=== PATIENT | female | born 1985 | race Caucasian/White ===

== ENCOUNTER 2016-03-19 11:45 | Outpatient (CLI) | payer BC ==
[~2016-03-19 11:45] MED LIST: PRENTAB26 PO
--- NOTE | 2016-03-19 15:24 | Progress Note ---
Progress Note 30 F [id number] 39.3 with fall earlier in the day down some steps with small pea size clot she passed. She fell on her butt and did not hit her abdomen. FHT Cat 1 with irregular contractions. Abdomen is soft and non-tender. No active bleeding at this time. Cervix is long and closed. patient wants TOLAC and is scheduled for repeat next week if she does not go in labor. Follow up instructions given to call if any bleeding or contractions that are regular.
[2016-05-27] MEDS ORDERED: OXYC-57 PO (13:05)
== END 2016-03-19 15:29 | disposition home or self-care (01) ==
LOC: C.OPB 11:45 → C.LD 11:46 → C.OPB 15:29
PROVIDERS: ATTEND Obstetrics & Gynecology
DX: O62.9 Abnormality of forces of labor, unspecified (principal); O46.93 Antepartum hemorrhage, unspecified, third trimester; W19.XXXA Unspecified fall, initial encounter; Z3A.39 39 weeks gestation of pregnancy

== ENCOUNTER 2016-03-21 18:35 | Outpatient (CLI) | payer BC ==
[2016-03-08 13:29] LABS: BASO % 0.2 %; BASO ABS # 0.02 K/uL (0-0.2); COMPLETE YES; EOS % 0.3 %; HEMATOCRIT 34.6 % (37-47); IG% 1.1 %; LYMPH % 18.3 %; LYMPH ABS # 2.26 K/uL (1.2-3.4); MEAN CELL VOLUME 87.8 fL (80-100); MEAN CORPUSCULAR HEMOGLOBIN 30.2 pg (25-34); MEAN CORPUSCULAR HGB CONC 34.4 g/dl (32-36); MEAN PLATELET VOLUME 10.2 fL (7.4-10.4); MONO % 4.4 %; NEUT % 75.7 %; PLATELET COUNT 199 K/uL (130-400); RED BLOOD COUNT 3.94 M/uL (4.2-5.4); WHITE BLOOD COUNT 12.34 K/uL (4.8-10.8)
--- NOTE | 2016-03-08 13:46 | PAT Medication Instructions ---
Service Date Mar 08, 2016. Current Home Medication List Multivit/Min/Iron/Fol Ac/Pren ( Vitamin), 1 TAB PO QAM Medication Instructions For Your Scheduled Surgery - Hold the following medications the morning of surgery: Multivit/Min/Iron/Fol Ac/Pren ( Vitamin), 1 TAB PO QAM If you have any questions please call us at [phone] or [phone] ( Adrienne) or [phone]
[~2016-03-21] VITALS: Ht 165.1 cm; Wt 100.9 kg
[2016-03-21 19:44] VITALS: Ht 165.1 cm; Wt 100.9 kg
[2016-03-25] MEDS ORDERED: LACTATED RINGER'S 1000ML 1,000 ML IV SCH (06:00)
[2016-03-25] MEDS ORDERED: CEFAZOLIN IV 2,000 MG in DEXTROSE 5% 50ML IV SCH (06:00)
[2016-05-27] MEDS ORDERED: OXYC-57 PO (13:05)
== END 2016-03-21 19:45 | disposition home or self-care (01) ==
LOC: C.LD 18:35 → C.OPB 18:35 → EDSTATUS 03-25 12:40
PROVIDERS: ATTEND Obstetrics & Gynecology
DX: O62.9 Abnormality of forces of labor, unspecified (principal); Z3A.39 39 weeks gestation of pregnancy

== ENCOUNTER 2016-03-25 05:46 | Inpatient (IN) | payer BC ==
--- NOTE | 2016-03-24 17:10 | HISTORY & PHYSICAL EXAMINATION ---
DATE OF ADMISSION: 03/25/2016 CHIEF COMPLAINT: , repeat. HISTORY OF PRESENT ILLNESS: The patient is a 30-year-old female para 1-0-0-1 at 40 weeks and 2 days, admitted for an elective repeat section. The patient had a prior in 2013 for nonreassuring heart tones shaft. PAST MEDICAL HISTORY: Positive for migraines, celiac disease. PAST SURGICAL HISTORY: Positive for tonsils and . FAMILY HISTORY: Noncontributory. SOCIAL HISTORY: Denies smoking, alcohol or drug use. MEDICATIONS: vitamins. ALLERGIES: CLARITHROMYCIN, GLUTEN, AND NUTRITIONAL SUPPLEMENTS. PHYSICAL EXAMINATION: HEENT: Within normal limits. LUNGS: Clear to auscultation. COR: Regular rate and rhythm. ABDOMEN: Soft, nontender, gravid. heart tone category 1 with most recent exam. EXTREMITIES: Recent exam. NEUROLOGICALLY: Intact. ASSESSMENT: Term with repeat section.
[~2016-03-25] VITALS: Ht 162.6 cm; Wt 100.0 kg
[2016-03-25] VITALS (16 sets, daily range): BP systolic 111–124; BP diastolic 58–73; PULSE 79–105; TEMP 36.8–37.1; O2SAT 95–100; Ht 162.6 cm; Wt 100.0 kg
[~2016-03-25 05:46] MED LIST changes: +CEFAZOLIN IV 2,000 MG in DEXTROSE 5% 50ML IV SCH
[2016-03-25] MEDS ORDERED: LACTATED RINGER'S 1000ML 1,000 ML IV ONE (05:47)
[2016-03-25] MEDS ORDERED: LACTATED RINGER'S 1000ML 1,000 ML IV SCH ×2 (06:00→09:05)
[2016-03-25] MEDS ORDERED: CITRIC ACID/SODIUM CITRATE 15 ML UDC PO SCH (06:00)
[2016-03-25 06:44] LABS: BASO % 0.1 %; BASO ABS # 0.01 K/uL (0-0.2); COMPLETE YES; EOS % 0.5 %; HEMATOCRIT 34.2 % (37-47); IG% 0.6 %; LYMPH % 23.1 %; MEAN CELL VOLUME 86.6 fL (80-100); MEAN CORPUSCULAR HEMOGLOBIN 29.4 pg (25-34); MEAN CORPUSCULAR HGB CONC 33.9 g/dl (32-36); MEAN PLATELET VOLUME 10.6 fL (7.4-10.4); MONO % 6.1 %; NEUT % 69.6 %; PLATELET COUNT 225 K/uL (130-400); RED BLOOD COUNT 3.95 M/uL (4.2-5.4); WHITE BLOOD COUNT 9.53 K/uL (4.8-10.8)
--- NOTE | 2016-03-25 07:30 | History & Physical Bridge Note ---
H&P Re-Evaluation Bridge Note: I have examined the patient, reviewed the History & Physical and in the interval since the performance of the History & Physical I have noted the following changes of clinical significance: No changes noted
[2016-03-25] MEDS ORDERED: OXYTOCIN INJ 10 UNITS/ML VIAL ONE ×2 (07:44→08:44)
[2016-03-25] MEDS ORDERED: MoRPHine SULFATE PF 1 MG/ML 10 ML AMP/VIAL ONE (07:46)
[2016-03-25] MEDS ORDERED: FENTANYL CITRATE INJ 50 MCG/1 ML 2 ML VIAL ONE (07:46)
[2016-03-25] MEDS ORDERED: SEPRAFILM ADHESION BARR (4) 3X2.5IN TOP ONE (08:33)
[2016-03-25] MEDS ORDERED: PHENYLEPHRINE 100MCG/ML 5ML SYR ONE (08:44)
[2016-03-25] MEDS ORDERED: SODIUM CHLORIDE 0.9% 1000ML 1,000 ML IV PRN (09:03)
[2016-03-25] MEDS ORDERED: LACTATED RINGER'S 1000ML 500 ML IV PRN (09:03)
[2016-03-25] MEDS ORDERED: NALOXONE HCL INJ 0.08 MG in SYRINGE 1.8 ML IV PRN (09:03)
[2016-03-25] MEDS ORDERED: NALOXONE HCL INJ 1 MG in SODIUM CHLORIDE 0.9% 1000ML 1,000 ML IV PRN ×4 (09:03)
[2016-03-25] MEDS ORDERED: OXYTOCIN IV SCH (09:05)
[2016-03-25] MEDS ORDERED: LACTATED RINGER S IV SCH (09:05)
--- NOTE | 2016-03-25 09:05 | [facility] Post Operative Brief Note ---
Immediate Operative Summary Operative Date Mar 25, 2016. Pre-Operative Diagnosis Term , repeat caesarean section Post-Operative Diagnosis Same as pre-op Procedure(s) Performed Low transverse uterine incision caesarean section; delivery of live female child at [address] Antonio Voss Psychic Reader Surgeon(s) Dr. Vinnie Chacon Estimated Blood Loss 400 ml Findings live female Apgars 7/9, weight 8#3oz.vertex Fluids (cc crystalloids) LR Specimens A: Placenta -exam B: cord blood Drains Choe clear fluid Anesthesia Spinal wit Duramorph Complication(s) None Disposition L&D
[2016-03-25] MEDS ORDERED: LANOLIN OINT EXT PRN ×2 (09:15)
[2016-03-25] MEDS ORDERED: DIPHTHERIA/TETANUS/PERTUSSIS 0.5 ML SYR/VIAL IM. ONE (09:15)
[2016-03-25] MEDS ORDERED: NALOXONE HCL 0.4 MG/1 ML VIAL/CARP IV PRN (09:15)
[2016-03-25] MEDS ORDERED: SUPERCREAM 0.870 % 15GM JAR EXT PRN (09:15)
[2016-03-25] MEDS ORDERED: DiphenhydrAMINE HCL 50 MG/ML VIAL IV PRN (09:15)
[2016-03-25] MEDS ORDERED: EpHEDrine SULFATE INJ 50 MG/ML AMP IV PRN (09:15)
[2016-03-25] MEDS ORDERED: MAGNESIUM HYDROXIDE SUSP 30 ML UDC PO PRN (09:15)
[2016-03-25] MEDS ORDERED: ONDANSETRON INJ 2 MG/ML 2 ML VIAL IV PRN (09:15)
[2016-03-25] MEDS ORDERED: MEASLES, MUMPS & RUBELLA VIRUS VIAL SQ. ONE (09:15)
[2016-03-25] MEDS ORDERED: PROMETHAZINE HCL INJ 25 MG in SODIUM CHLORIDE 0.9% 50ML 50 ML IV PRN (09:15)
[2016-03-25] MEDS ORDERED: MoRPHine SULFATE PF 1 MG/ML 10 ML AMP/VIAL EPI PRN (09:15)
[2016-03-25] MEDS ORDERED: SENNA 8.6 MG TAB PO PRN (09:15)
[2016-03-25] MEDS ORDERED: NO NARCOTICS OR SEDATIVES SCH (09:15)
[2016-03-25] MEDS ORDERED: BENZOCAINE 20% AER SPR 82.5 GM CAN EXT PRN (09:15)
[2016-03-25] MEDS ORDERED: NALBUPHINE HCL INJ 10 MG/ML AMP IV PRN (09:15)
--- NOTE | 2016-03-25 09:49 | Anesthesiology Progress Note ---
Anesthesia Post Op Note Date & Time Mar 25, 2016 at 09:48 Notes Mental Status: alert / awake / arousable, participated in evaluation Pt Amnestic to Procedure: No Nausea / Vomiting: adequately controlled Pain: adequately controlled Airway Patency, RR, SpO2: stable & adequate BP & HR: stable & adequate Hydration State: stable & adequate Neuraxial Anesthesia: was administered, sensory block is resolving Anesthetic Complications: no major complications apparent
--- NOTE | 2016-03-25 09:59 | OPERATIVE REPORT ---
DATE OF OPERATION: 03/25/2016 PREOPERATIVE DIAGNOSIS: Term elective repeat section. POSTOPERATIVE DIAGNOSIS: Same. PROCEDURE: Primary section, repeat. SURGEON: Dr. Voss. SUPERVISOR MIXING: Dr. Chacon. ESTIMATED BLOOD LOSS: 400 mL. FINDINGS: Live female. Apgars 7 and 9, weight 8 pounds 3 ounces, vertex presentation. FLUIDS: LR. Choe of clear urine. SPECIMENS: Placenta and cord blood. CLINICAL HISTORY OF PRESENT ILLNESS: The patient is a 30-year-old female para 1-0-0-1 at 40 weeks and 2 days, admitted for an elective repeat section at term. The patient was identified prior to the start of the procedure. Time out was called. Antibiotics were given preop calculation clerk to the OR. DESCRIPTION OF PROCEDURE: After satisfactory spinal anesthesia, the patient was prepped and draped in the usual sterile fashion. A low Pfannenstiel incision through a prior scar was then made entering into the abdominal cavity through the fascia and peritoneal layers. Upon entering into the peritoneal cavity, there were numerous filmy adhesions that were noted. These were lysed. Pickups with teeth and Metzenbaums were used to develop a bladder flap sharply dissected down. The bladder blade was entered. A low segment transverse incision was made in the lower uterine segment. The incision was nicked. Amniotic sac was clear. The incision was widened in the AP diameter. The was then delivered from the vertex presentation with the aid of fundal pressure delivering a live female. The cord was doubly clamped and cut. Baby handed to transitions manager. Apgars 7 and 9, vertex presentation. weight 8 pounds 3 ounces. Cord blood was obtained. Placenta delivered spontaneously and intact. Cord blood was sent off. The uterus was then exteriorized. Ring forceps were then placed on both angles in the inferior margin. There were several adhesions from the peritoneal cavity from the ovarian ligament to the uterus. These were lysed with sharp and cautery dissection. Uterus was closed in double layer closure starting with 0 Vicryl suture in a continuous interlocking fashion followed by second imbricating suture of 0 Vicryl suture. Initial sponge, needle and instrument count were found to be correct. Tubes, ovaries bilaterally were found to be within normal limits. The uterus was then placed back into the normal anatomical position. No active bleeding was noted. Several pieces of Seprafilm were placed over the adhesions that were subsequently lysed and along the lower uterine incision and in the midline of the uterus before closure. The fascia was then reapproximated from both ends using 0 Vicryl suture in a continuous interlocking fashion. Subcuticular space was then irrigated. Bleeder was cauterized. A 3-0 plain suture was used to close the subcuticular space. The skin was reapproximated with 4-0 Monocryl suture. Steri-Strips were then applied on the skin. Clear urine was noted from the Choe. The estimated blood loss was 400 mL. The final sponge, needle and instrument count were found to be correct. The patient tolerated the procedure well, was taken to recovery room in stable condition. I attest to the content of the Intraoperative Record and any orders documented therein. Any exceptions are noted below. GRACED
[2016-03-25] MEDS: KETOROLAC TROMETHAMINE 30 MG/ML VIAL IV. PRN ×2 (11:00→19:55)
[2016-03-25] MEDS: SIMETHICONE 80 MG CHEW PO SCH ×3 (12:25→19:55)
[2016-03-25] MEDS: DOCUSATE SODIUM 100 MG CAP PO SCH (19:55)
[2016-03-26] VITALS (8 sets, daily range): BP systolic 98–113; BP diastolic 54–69; PULSE 85–106; TEMP 36.6–37.2; O2SAT 96–98
[2016-03-26] MEDS: KETOROLAC TROMETHAMINE 30 MG/ML VIAL IV. PRN (02:11)
[2016-03-26] MEDS ORDERED: DC INTRASPINAL MORPHINE SCH (03:00)
[2016-03-26] MEDS ORDERED: OXYCODONE/ACETAMINOPHEN 5-325 TAB PO PRN (03:01)
[2016-03-26] MEDS ORDERED: ONDANSETRON INJ 2 MG/ML 2 ML VIAL IV PRN (03:01)
[2016-03-26] MEDS ORDERED: MEPERIDINE HCL 75 MG/ML CARP IV PRN (03:01)
[2016-03-26] MEDS ORDERED: DiphenhydrAMINE HCL 50 MG/ML VIAL IV PRN (03:01)
[2016-03-26] MEDS ORDERED: KETOROLAC TROMETHAMINE 30 MG/ML VIAL IV. PRN (03:01)
[2016-03-26] MEDS ORDERED: MEPERIDINE HCL 50 MG/ML CARP IV PRN (03:01)
[2016-03-26] MEDS: OXYCODONE/ACETAMINOPHEN 5-325 TAB PO PRN ×5 (04:47→20:15)
[2016-03-26 06:20] LABS: BASO % 0.1 %; BASO ABS # 0.01 K/uL (0-0.2); COMPLETE YES; EOS % 0.1 %; HEMATOCRIT 32.4 % (37-47); IG% 0.4 %; LYMPH % 9.4 %; LYMPH ABS # 1.33 K/uL (1.2-3.4); MEAN CELL VOLUME 87.3 fL (80-100); MEAN CORPUSCULAR HEMOGLOBIN 28.8 pg (25-34); MEAN PLATELET VOLUME 10.6 fL (7.4-10.4); MONO % 7.2 %; NEUT % 82.8 %; PLATELET COUNT 175 K/uL (130-400); RED BLOOD COUNT 3.71 M/uL (4.2-5.4); WHITE BLOOD COUNT 14.16 K/uL (4.8-10.8)
--- NOTE | 2016-03-26 08:24 | OB/GYN Progress Note ---
LINE [facility] Progress Note Date of Service Mar 26, 2016. Subjective conversation w/ patient, physical exam Ambulation: ambulating normally Voiding: no voiding problems Passing Gas: Yes Diet Tolerance: Regular Diet Lochia: Moderate Feeding Type: Breast Feeding Notes: Doing well, no concerns. Pain well controlled. Ambulating without difficulty. Tolerating regular diet. Incision c/d/i. Lochia decreasing. Objective Vital Signs Date Time Temp Pulse Resp B/P Pulse Ox O2 Delivery O2 Flow Rate FiO2 03/26/16 08:00 37.2 106 18 104/65 Room Air 03/26/16 03:50 36.9 106 24 113/69 97 Room Air 03/26/16 03:00 20 97 03/26/16 02:10 20 98 03/26/16 01:05 20 98 03/26/16 00:10 20 96 03/25/16 23:40 20 99 03/25/16 23:40 37.1 105 20 120/67 99 Room Air 03/25/16 23:40 99 Room Air 03/25/16 23:00 16 95 03/25/16 22:00 18 95 03/25/16 21:00 24 97 03/25/16 20:00 20 97 03/25/16 19:40 20 98 03/25/16 19:40 36.9 98 20 121/71 99 Room Air 03/25/16 17:05 18 98 03/25/16 16:05 18 97 03/25/16 16:00 36.8 87 16 112/73 100 Room Air 03/25/16 15:45 97 Room Air 03/25/16 15:05 18 98 03/25/16 14:05 18 100 03/25/16 13:05 93 18 118/67 99 Room Air 03/25/16 13:05 18 99 03/25/16 12:05 85 18 111/71 100 Room Air 03/25/16 12:05 18 100 03/25/16 11:05 36.9 79 18 124/58 99 Room Air 03/25/16 11:05 99 Room Air 03/25/16 11:05 99 Room Air 03/25/16 11:05 20 99 Physical Exam General Appearance: WELL-APPEARING Respiratory/Chest: chest non-tender, lungs clear Cardiovascular: regular rate, rhythm Abdomen: normal bowel sounds, soft Fundus: Firm Incision Description: Clean, Dry & Intact Extremities: normal range of motion, non-tender, no calf tenderness Laboratory Results Last 24 Hours Test 03/26/16 05:50 White Blood Count 14.16 K/uL Red Blood Count 3.71 M/uL Hemoglobin 10.7 g/dL Hematocrit 32.4 % Mean Corpuscular Volume 87.3 fL Mean Corpuscular Hemoglobin 28.8 pg Mean Corpuscular Hemoglobin Concent 33.0 g/dl Platelet Count 175 K/uL Mean Platelet Volume 10.6 fL Neutrophils (%) (Auto) 82.8 % Lymphocytes (%) (Auto) 9.4 % Monocytes (%) (Auto) 7.2 % Eosinophils (%) (Auto) 0.1 % Basophils (%) (Auto) 0.1 % Neutrophils # (Auto) 11.72 K/uL Lymphocytes # (Auto) 1.33 K/uL Monocytes # (Auto) 1.02 K/uL Eosinophils # (Auto) 0.02 K/uL Basophils # (Auto) 0.01 K/uL RDW Standard Deviation 42.0 fL RDW Coefficient of Variation 13.2 % Immature Granulocyte % (Auto) 0.4 % Immature Granulocyte # (Auto) 0.06 K/uL Assessment and Plan Post-Op Day Number: 1 Continue Routine Care: -Advance diet and activity as tolerated. -Continue routine postop care.
[2016-03-26] MEDS: FERROUS SULFATE 325 MG TAB PO SCH (08:32)
[2016-03-26] MEDS: IBUPROFEN 600 MG TAB PO PRN ×5 (08:32→23:48)
[2016-03-26] MEDS: DOCUSATE SODIUM 100 MG CAP PO SCH ×2 (08:32→20:15)
[2016-03-26] MEDS: SIMETHICONE 80 MG CHEW PO SCH ×4 (08:33→20:15)
[2016-03-26] MEDS: PRENATAL VITAMIN TAB PO SCH (08:33)
--- NOTE | 2016-03-26 08:53 | Anesthesiology Progress Note ---
Anesthesia Post Op Note Date & Time Mar 26, 2016 at 08:53 Vital Signs Pain Intensity: 7.0 Vital Signs Past 12 Hours Date Time Temp Pulse Resp B/P Pulse Ox O2 Delivery O2 Flow Rate FiO2 03/26/16 08:00 37.2 106 18 104/65 Room Air 03/26/16 07:20 Room Air 03/26/16 03:50 36.9 106 24 113/69 97 Room Air 03/26/16 03:00 20 97 03/26/16 02:10 20 98 03/26/16 01:05 20 98 03/26/16 00:10 20 96 03/25/16 23:40 20 99 03/25/16 23:40 37.1 105 20 120/67 99 Room Air 03/25/16 23:40 99 Room Air 03/25/16 23:00 16 95 03/25/16 22:00 18 95 03/25/16 21:00 24 97 Notes Mental Status: alert / awake / arousable, participated in evaluation Pt Amnestic to Procedure: Yes Nausea / Vomiting: adequately controlled Pain: adequately controlled Airway Patency, RR, SpO2: stable & adequate BP & HR: stable & adequate Hydration State: stable & adequate Neuraxial Anesthesia: was administered, sensory block resolved Anesthetic Complications: no major complications apparent
[2016-03-26] MEDS ORDERED: BISACODYL 5 MG TABEC PO ONE (22:00)
[2016-03-27] MEDS: IBUPROFEN 600 MG TAB PO PRN ×2 (04:30→08:24)
[2016-03-27] MEDS: OXYCODONE/ACETAMINOPHEN 5-325 TAB PO PRN ×2 (04:31→08:23)
[2016-03-27 07:54] VITALS: BP 106/74; PULSE 96; TEMP 36.4
[2016-03-27] MEDS: PRENATAL VITAMIN TAB PO SCH (08:22)
[2016-03-27] MEDS: FERROUS SULFATE 325 MG TAB PO SCH (08:22)
[2016-03-27] MEDS: DOCUSATE SODIUM 100 MG CAP PO SCH (08:22)
[2016-03-27] MEDS: SIMETHICONE 80 MG CHEW PO SCH (08:22)
--- NOTE | 2016-03-27 08:31 | OB/GYN Progress Note ---
MAIL CLERK BILLS Progress Note Date of Service: Mar 27, 2016. Patient is seen and examined. She feels well, no complaints. Likes to go home. Pain is under control with oral meds. Ambulating without dizziness. Voiding without difficulty Tolerating regular diet with out N&V Flatus + BM neg Bleeding is minimal No fever/ chills/ CP/ SOB/ N&V/ Leg pain Breast feeding without problems Date Time Temp Pulse Resp B/P Pulse Ox O2 Delivery O2 Flow Rate FiO2 03/27/16 07:54 36.4 96 16 106/74 03/26/16 23:20 Room Air 03/26/16 23:20 36.6 85 18 98/54 Room Air 03/26/16 15:30 37.1 100 20 104/59 Room Air 03/26/16 15:30 Room Air Test 02/24/16 03:10 03/08/16 13:16 03/25/16 05:55 03/26/16 05:50 Urine Color YELLOW Urine Appearance CLEAR Urine pH 7.0 Urine Specific [place] 1.015 Urine Protein NEG Urine Glucose (UA) NEG Urine Ketones TRACE H Urine Occult Blood NEG Urine Nitrite NEG Urine Bilirubin NEG Urine Urobilinogen NEG Urine Leukocyte Esterase TRACE H Urine WBC (Auto) 1-5 Urine RBC (Auto) 5-10 H Urine Hyaline Casts (Auto) 1-5 Urine Epithelial Cells (Auto) >30 H Urine Bacteria (Auto) NEG White Blood Count 12.34 H 9.53 14.16 H Red Blood Count 3.94 L 3.95 L 3.71 L Hemoglobin 11.9 L 11.6 L 10.7 L Hematocrit 34.6 L 34.2 L 32.4 L Mean Corpuscular Volume 87.8 86.6 87.3 Mean Corpuscular Hemoglobin 30.2 29.4 28.8 Mean Corpuscular Hemoglobin Concent 34.4 33.9 33.0 Platelet Count 199 225 175 Mean Platelet Volume 10.2 10.6 H 10.6 H Neutrophils (%) (Auto) 75.7 69.6 82.8 Lymphocytes (%) (Auto) 18.3 23.1 9.4 Monocytes (%) (Auto) 4.4 6.1 7.2 Eosinophils (%) (Auto) 0.3 0.5 0.1 Basophils (%) (Auto) 0.2 0.1 0.1 Neutrophils # (Auto) 9.34 H 6.63 H 11.72 H Lymphocytes # (Auto) 2.26 2.20 1.33 Monocytes # (Auto) 0.54 0.58 1.02 H Eosinophils # (Auto) 0.04 0.05 0.02 Basophils # (Auto) 0.02 0.01 0.01 RDW Standard Deviation 40.2 41.1 42.0 RDW Coefficient of Variation 12.4 12.8 13.2 Immature Granulocyte % (Auto) 1.1 0.6 0.4 Immature Granulocyte # (Auto) 0.14 H 0.06 H 0.06 H PE: General: Alert, orientedx3, NAD CVS: S1S2 RRR Lungs; CTAB Abd: soft, NT, fundus firm, below Umbilicus Incision: Clean, dry, intact Perineum intact, Lochia rubra minimal Ext; NT, no edema AP: 30 yo s/p C Section, pod# 2 VSS Afebrile doing well Desires D/C home Instructions were given when to call All questions were answered D/C home , f/u in office
[2016-03-27] MEDS ORDERED: OXYC-57 PO (08:32)
[2016-03-27] MEDS ORDERED: MTR600X PO (08:32)
--- NOTE | 2016-03-27 08:34 | Discharge Instructions ---
Discharge Instructions Admission Reason for Admission: Elective Repeat Caesarean Section Discharge Discharge Diagnosis / Problem: Repeat C section Discharge Goals Goal(s): Routine recovery after Medications Continue Dispensed Medications: lansinoh Activity Recommendations Activity Limitations: as noted below Lifting Limitations: no more than 10 pounds Exercise/Sports Limitations: until after follow-up appointment May Resume Sexual Activity: after follow-up appointment Shower/Bathe: keep incision dry Driving or Machine Use: ACTIVITY RECOMMENDATIONS: * Gradual return to full activity over the next 2-3 weeks. * No lifting - nothing heavier than baby over the next 2-3 weeks. * Do not engage in vigorous exercise, sexual activity or sports until cleared by your physician. * Do not drive or operate any motorized equipment until cleared by your physician. * You may shower/bathe daily. BREAST CARE: If you are not breast feeding: * Wear a supportive bra 24 hours a day for one to two weeks. * Avoid stimulating your breasts and nipples as much as possible during the first few weeks after delivery. * When taking a shower, have the warm water hit your back, not breasts. * When your breasts feel full, apply ice packs. Usually three to four times a day helps ease the discomfort. * Take a mild pain medication (Tylenol/Motrin) when you are uncomfortable. If breast feeding: * Use breast milk to lubricate nipples. Lansinoh cream may be used for sore nipples. You do not need to remove cream prior to breast feeding. If using a different brand of cream, check the label for directions regarding removal of cream prior to nursing. * Wear a supportive bra. * If having problems with breasts or breast feeding, call a clothing consultant or your health care provider. OVER THE COUNTER MEDICATION: * For discomfort or pain, you may use Acetaminophen (Tylenol), Ibuprofen (Advil ), or Naproxen (Aleve) following the package directions. * For constipation you may use Colace following the package directions. SPECIAL CARE INSTRUCTIONS: When you are discharged from the hospital, it is important for you to follow the instructions listed below: * During the first week at home, you should be able to care for yourself and your baby. In addition, the usual light household activities are encouraged. * Limit your activities to the way you feel. Do not try to clean the house or move furniture. Be sensible. * If you actively engage in sports and have done so up until the time of your delivery, you may resume these activities as soon as you feel able. This may take up to one month or even longer. Use good judgment. * Continue to take your vitamins for at least six weeks after the of your baby. * Your diet need not be limited unless you were on a special diet before your delivery. Breast-feeding mothers need around 2500 calories per day and at least 64-80 ounces of fluid per day (8 to 10 glasses). * You should eat foods from the four major food groups. Crash diets or fad diets are to be avoided. Eating lean meats, fresh fruits and vegetables, low-fat dairy products, high fiber foods and a regular exercise program, will help you get back to your pre- weight without putting your health at risk. * Constipation is sometimes a problem after delivery. Take a mild laxative as needed. If breast feeding, Milk of Magnesia is acceptable to use. You may use a suppository or Fleets enema if no episiotomy. * A daily shower or tub bath is suggested. Be sure to thoroughly and gently dry the perineum. * A bloody vaginal discharge will usually continue until around four weeks post . A small amount of bleeding may continue for as long as six weeks. Vaginal discharge changes from the bright red bleeding after delivery to pink then brownish and finally yellowish-pink before becoming white and disappearing. * Bleeding may increase with activity. Your first period may come in 4-8 weeks. If you are breast feeding, your period may be delayed even longer. * [place] (sex) can begin whenever both you and your partner feel comfortable and do not have any form of genital infection. It is recommended that you wait at least six weeks for internal and external healing to occur. If you have questions, please talk to your health care practitioner. A condom should be used to prevent infection and . * Foreplay, gentle intercourse and lubrication is very important the first several times to prevent pain. A water-based lubricant such as K-Y jelly or Astroglide may be used. * Tampons and/or Douching should be avoided until after six weeks check-up. * If you have RH negative blood and your baby is RH positive, you will receive RHOGAM by injection prior to discharge. The nurse will give you a card to keep with you that has the date and place that you received RHOGAM after delivery. * During your care, you had a Rubella screen done to check for the presence of rubella antibodies in your blood. If your test was negative, you will receive a Rubella vaccine prior to discharge. This vaccine may cause a fever, soreness at the injection site and flu-like symptoms. If these symptoms persist, notify your health care practitioner. is not advised for three months after a Rubella vaccine. * Verbalizes understanding of car seat law as reviewed with patient nursing. * Car Seat hand-out given and reviewed with patient by nursing. * Shaken baby information reviewed with patient by nursing. Call you doctor if: * Heavy bleeding (saturating several pads an hour) or passing clots the size of your fist. * A fever >101 degrees F (38.3 degrees C) on two occasions four hours apart and /or chills. * Unusual pain in the pelvic or vaginal areas. Pain should improve each day . * Call the doctor for any increased redness, drainage or swelling around the incision and any pain unrelieved by prescribed pain medication. * Any signs or symptoms of phlebitis (possible blood clots forming in the veins ): leg pain, warm, red or swollen area on leg. * "Baby Blues" lasting longer than two weeks. If you have any questions or concerns, call your health care practitioner at . FOLLOW-UP VISIT: * Incision check (staple removal) in 1 week. Please call doctor's office at to set up appointment. * Please call the office at to schedule a 6 week examination. It is important you keep this appointment. * It is important for you to make arrangements for either yearly or twice yearly check-ups thereafter. . Current Hospital Diet Patient's current hospital diet: Regular OB Diet Discharge Diet Recommended Diet: Regular Diet Procedures Procedures Performed: Low transverse uterine incision caesarean section; delivery of live female child at 0822 Pending Studies Studies pending at discharge: no Medical Emergencies . Who to Call and When: Medical Emergencies: If at any time you feel your situation is an emergency, please call 911 immediately. . Non-Emergent Contact Non-Emergency issues call your: Surgeon Call Non-Emergent contact if: temperature is above 100.5, your pain is not controlled, wound has increased drainage, wound has increased redness, wound has increased pain . . "Provider Documentation" section prepared by Rene Saez. VTE Core Measure Inpt VTE Proph given/why not?: Treatment not indicated, Treatment not tolerated
[2016-03-27] MEDS ORDERED: BISACODYL 10 MG SUPP PR PRN (09:15)
[2016-03-27 11:25] VITALS: BP_DIAS 74; PULSE 96; TEMP 36.4
--- NOTE | 2016-04-01 14:11 | DISCHARGE SUMMARY ---
REASON FOR ADMISSION: The patient is a 30-year-old female para 1-0-0-1 at 40 weeks and 2 days, admitted for an elective repeat section. She was given antibiotics preop before having her . She ended up with a live female, Apgars were 7 and 9. weight was 8 pounds 3 ounces in the vertex presentation. Her hospital course was unremarkable. The patient had a normal routine course in the hospital. She was discharged on the third postoperative day. Home going instructions were given. Condition on discharge is stable. Regular diet on discharge. Hemoglobin 10.7, hematocrit 32.4 on discharge. Medications on discharge include Motrin 600 mg and oxycodone. Follow up will be in the office in 1 week for an incision check.
[2016-05-27] MEDS ORDERED: OXYC-57 PO (13:05)
== END 2016-03-27 11:25 | disposition home or self-care (01) | DRG 766 ==
LOC: C.LD 05:46 → EDSTATUS 07:30 → C.OBG 12:25
PROVIDERS: ADMIT Obstetrics & Gynecology; ATTEND Obstetrics & Gynecology
PROC: 10D00Z1 Extraction of Products of Conception, Low, Open Approach (ICD-10-PCS; principal; 2016-03-25 07:30)
DX: O34.219 Maternal care for unspecified type scar from previous cesarean delivery (principal); Z37.0 Single live birth; Z3A.40 40 weeks gestation of pregnancy; Z98.890 Other specified postprocedural states

== ENCOUNTER 2016-05-26 06:31 | Observation (INO) | payer BC ==
[~2016-05-26] VITALS: Ht 165.1 cm; Wt 85.4 kg
[~2016-05-26 06:31] MED LIST changes: -CEFAZOLIN IV 2,000 MG in DEXTROSE 5% 50ML IV SCH; +MTR600X PO; +OXYC-57 PO
[2016-05-26] MEDS ORDERED: SODIUM CHLORIDE 0.9% 1000ML 1,000 ML IV STA (06:40)
[2016-05-26] MEDS ORDERED: PRENTAB26 PO (06:49)
[2016-05-26] MEDS ORDERED: KETOROLAC TROMETHAMINE 30 MG/ML VIAL IV STA (06:57)
[2016-05-26] MEDS ORDERED: ONDANSETRON INJ 2 MG/ML 2 ML VIAL IV STA (06:59)
[2016-05-26 07:33] LABS: BASO % 0.1 %; BASO ABS # 0.01 K/uL (0-0.2); COMPLETE YES; EOS % 0.2 %; HEMATOCRIT 41.6 % (37-47); IG% 0.2 %; LYMPH % 19.3 %; LYMPH ABS # 2.06 K/uL (1.2-3.4); MEAN CELL VOLUME 85.6 fL (80-100); MEAN CORPUSCULAR HEMOGLOBIN 29.4 pg (25-34); MEAN CORPUSCULAR HGB CONC 34.4 g/dl (32-36); MEAN PLATELET VOLUME 10.6 fL (7.4-10.4); MONO % 4.9 %; NEUT % 75.3 %; PLATELET COUNT 261 K/uL (130-400); RED BLOOD COUNT 4.86 M/uL (4.2-5.4); WHITE BLOOD COUNT 10.67 K/uL (4.8-10.8)
[2016-05-26 07:46] LABS: ALT/SGPT 22 U/L (12-78); BLOOD UREA NITROGEN 14 mg/dl (7-18); BUN/CREATININE RATIO 15.2 (10-20); CALCIUM 9.3 mg/dl (8.5-10.1); CARBON DIOXIDE 25 mmol/L (21-32); CHLORIDE 107 mmol/L (98-107); CREATININE 0.89 mg/dl (0.60-1.20); GLUCOSE 97 mg/dl (70-99); POTASSIUM 3.8 mmol/L (3.5-5.1); SODIUM 142 mmol/L (136-145)
[2016-05-26 07:49] LABS: ALKALINE PHOSPHATASE 103 U/L (45-117); AST/SGOT 16 U/L (15-37)
--- NOTE | 2016-05-26 08:00 | DIAGNOSTIC IMAGING REPORT ---
ABDOMINAL ULTRASOUND, RIGHT UPPER QUADRANT HISTORY: Right upper quadrant abdominal pain. COMPARISON: CT of the abdomen and pelvis August 18, 2014. FINDINGS: Liver is sonographically normal. There is no biliary ductal dilatation. Multiple gallstones are noted within the gallbladder. A sonographic Cagle sign was reported by the technologist. Gallbladder wall thickness was at the upper limits of normal. There was no pericholecystic fluid. The pancreas body is normal. The head and tail are obscured. There is no right hydronephrosis. IMPRESSION: 1. Cholelithiasis and positive sonographic Cagle's sign. No gallbladder wall thickening or pericholecystic fluid. The findings could reflect acute cholecystitis. A hepatobiliary scan could be obtained as indicated. 2. No biliary ductal dilatation. Electronically signed by: Tomas Campo M.D. 05/26/2016 7:58 AM Dictated Date/Time: 05/26/2016 7:55 AM
[2016-05-26 08:47] LABS: URINE APPEARANCE CLEAR (CLEAR); URINE BILIRUBIN NEG (NEG); URINE COLOR YELLOW; URINE EPITHELIAL CELL AUTO 0-5 /lpf (0-5); URINE NITRITE NEG (NEG); URINE PH 5.5 (4.5-7.5); URINE SPECIFIC GRAVITY 1.009 (1.000-1.030); UROBILINOGEN NEG (NEG); ZZUR CULT IF INDIC CLEAN CATCH NO
[2016-05-26 08:49] LABS: MANUAL MICROSCOPIC REQUIRED? NO; REVIEW REQ? NO
--- NOTE | 2016-05-26 09:37 | History and Physical ---
History & Physical Date & Time of Service: May 26, 2016 at 09:17 Chief Complaint: Pain Under Right Rib And Nausea Primary Care Physician: No Doctor, Assigned History of Present Illness Source: patient, family The patient is a 30 year old female who presents to the Emergency Room with complaints of persistent pain under her right ribs for the past 12-13 hours. The pain radiates to her back and is rated 7/10 in severity. The pain is worsened with movement but is not worse when she takes a deep breath. She had 2 Tylenol last night. The patient also complains of nausea and lightheadedness. She has had similar pain under her ribs before but never to this extent or lasting this long. The patient has a significant family history of gallbladder disease as all of her immediate relatives are s/p cholecystectomy. The patient follows up with Shiva Metz. The patient is currently nursing. The patient had a small amount of vaginal spotting recently. Patient denies LOC, headache, fevers, chills, diaphoresis, visual changes, neck pain, chest pain, breathing difficulties, vomiting, abdominal pain, back pain, melena, hematochezia, urinary symptoms, numbness, weakness, lymphadenopathy, rash, or other complaints. now pt feels better after received pain medicine. Past Medical/Surgical History Surgical Problems: (1) H/O section Status: Resolved Family History Cancer Gallbladder disease Social History Smoking Status: Never Smoker Smokeless Tobacco Use: No Alcohol Use: occasionally Drug Use: none Marital Status: Allergies Coded Allergies: Gluten (Unverified Allergy, Severe, INTESTINAL ISSUES, 05/26/16) Ethan (Verified Allergy, Severe, ANAPHYLAXIS, 05/26/16) Beckham (Verified Allergy, Severe, ANAPHYLAXIS, 05/26/16) Pineapple (Unverified Allergy, Severe, ANAPHYLAXIS, 05/26/16) Clarithromycin (Unverified Adverse Reaction, Intermediate, EMESIS, 05/26/16 ) Home Medications Scheduled Multivit/Min/Iron/Fol Ac/Pren ( Vitamin), 1 TAB PO DAILY Review of Systems Constitutional: No chills, No fatigue, No fever, No problem reported, No sweats , No weakness, No weight loss Eyes: No diplopia, No discharge, No eye pain, No problem reported, No redness, No worsening of vision ENT: No dental problems, No hearing loss, No nasal symptoms, No problem reported, No sore throat, No tinnitus, No trouble swallowing, No unusual epistaxis Respiratory: No cough, No dyspnea at rest, No dyspnea on exertion, No hemoptysis, No problem reported, No shortness of breath, No sputum, No wheezing Cardiovascular: No PND, No chest pain, No claudication, No edema, No orthopnea , No palpitations, No problem reported Abdomen: + nausea, + pain, + vomiting Musculoskeletal: No calf pain, No joint pain, No muscle pain, No problem reported, No swelling Genitourinary - Female: No dysmenorrhea, No dysuria, No hematuria, No menorrhagia, No metrorrhagia, No , No problem reported, No rash, No urinary frequency, No urinary incontinence, No urinary retention, No urinary urgency, No vaginal bleeding, No vaginal discharge, No vaginal itching, No vulvodynia Neurologic: No balance problems, No memory loss, No numbness/tingling, No paralysis, No problem reported, No vertigo, No weakness Psychiatric: No anhedonism, No anxiety, No depression symptoms, No insomnia, No problem reported, No substance abuse Endocrine: No excessive thirst, No excessive urination, No fatigue, No problem reported Hematologic / Lymphatic: No abnormal bleeding/bruising, No clotting problems, No night sweats, No problem reported, No swollen lymph nodes Integumentary: No bleeding, No color change, No itch, No new/changing skin lesions, No problem reported, No rash Allergic / Immunologic: + food allergies (Gluten, Ruben, peach, Pineaapple) Physical Exam Vital Signs Date Time Temp Pulse Resp B/P Pulse Ox O2 Delivery O2 Flow Rate FiO2 05/26/16 08:33 71 18 117/77 99 Room Air 05/26/16 06:33 36.7 95 18 116/66 98 Room Air General Appearance: WD/WN, + mild distress Head: normocephalic Eyes: normal inspection, PERRL ENT: normal ENT inspection Neck: supple, no JVD Respiratory/Chest: chest non-tender, lungs clear, normal breath sounds, no respiratory distress, no accessory muscle use Cardiovascular: regular rate, rhythm, no edema, no gallop, no JVD Abdomen/GI: soft, no organomegaly, no pulsatile mass, + tenderness (at RUQ, no rebound pain) Extremities/Musculoskelatal: normal inspection, no calf tenderness Neurologic/Psych: film spooler II-XII nml as tested, no motor/sensory deficits, alert, normal mood/affect Skin: normal color, warm/dry, no rash Lymphatic: no adenopathy Diagnostics Laboratory Results Results Past 24 Hours Test 05/26/16 07:10 05/26/16 08:20 Range/Units White Blood Count 10.67 4.8-10.8 K/uL Red Blood Count 4.86 4.2-5.4 M/uL Hemoglobin 14.3 12.0-16.0 g/dL Hematocrit 41.6 37-47 % Mean Corpuscular Volume 85.6 80-100 fL Mean Corpuscular Hemoglobin 29.4 25-34 pg Mean Corpuscular Hemoglobin Concent 34.4 32-36 g/dl Platelet Count 261 130-400 K/uL Mean Platelet Volume 10.6 7.4-10.4 fL Neutrophils (%) (Auto) 75.3 % Lymphocytes (%) (Auto) 19.3 % Monocytes (%) (Auto) 4.9 % Eosinophils (%) (Auto) 0.2 % Basophils (%) (Auto) 0.1 % Neutrophils # (Auto) 8.04 1.4-6.5 K/uL Lymphocytes # (Auto) 2.06 1.2-3.4 K/uL Monocytes # (Auto) 0.52 0.11-0.59 K/uL Eosinophils # (Auto) 0.02 0-0.5 K/uL Basophils # (Auto) 0.01 0-0.2 K/uL RDW Standard Deviation 43.7 36.4-46.3 fL RDW Coefficient of Variation 13.9 11.5-14.5 % Immature Granulocyte % (Auto) 0.2 % Immature Granulocyte # (Auto) 0.02 0.00-0.02 K/uL Sodium Level 142 136-145 mmol/L Potassium Level 3.8 3.5-5.1 mmol/L Chloride Level 107 98-107 mmol/L Carbon Dioxide Level 25 21-32 mmol/L Anion Gap 10.0 3-11 mmol/L Blood Urea Nitrogen 14 7-18 mg/dl Creatinine 0.89 0.60-1.20 mg/dl Est Creatinine Clear Calc Drug Dose 101.6 ml/min Estimated GFR () 102.2 Estimated GFR (Non- 88.2 BUN/Creatinine Ratio 15.2 10-20 Random Glucose 97 70-99 mg/dl Calcium Level 9.3 8.5-10.1 mg/dl Total Bilirubin 0.4 0.2-1 mg/dl Direct Bilirubin < 0.1 0-0.2 mg/dl Aspartate Amino Transf (AST/SGOT) 16 15-37 U/L Alanine Aminotransferase (ALT/SGPT) 22 12-78 U/L Alkaline Phosphatase 103 45-117 U/L Total Protein 7.8 6.4-8.2 gm/dl Albumin 4.3 3.4-5.0 gm/dl Lipase 128 73-393 U/L Urine Color YELLOW Urine Appearance CLEAR CLEAR Urine pH 5.5 4.5-7.5 Urine Specific [place] 1.009 1.000-1.030 Urine Protein NEG NEG Urine Glucose (UA) NEG NEG Urine Ketones NEG NEG Urine Occult Blood 2+ NEG Urine Nitrite NEG NEG Urine Bilirubin NEG NEG Urine Urobilinogen NEG NEG Urine Leukocyte Esterase NEG NEG Urine WBC (Auto) 0 0-5 /hpf Urine RBC (Auto) 0-4 0-4 /hpf Urine Hyaline Casts (Auto) 0 0-5 /lpf Urine Epithelial Cells (Auto) 0-5 0-5 /lpf Urine Bacteria (Auto) NEG NEG Urine Test NEG NEG Diagnostic Radiology U/S study: IMPRESSION: 1. Cholelithiasis and positive sonographic Cagle's sign. No gallbladder wall thickening or pericholecystic fluid. The findings could reflect acute cholecystitis. A hepatobiliary scan could be obtained as indicated. 2. No biliary ductal dilatation. Impression Assessment and Plan IMP: Acute cholecystitis, cholelithiasis Plan: I recommend to admit to hospital, IV fluid, control the pain, pt will have laparoscopic cholecystectomy, possible open or cholangiogram tomorrow, D/W benefits, risks and alternatives of the procedure, the risks- infection, bleeding, injury CBD, hernia, , pt and her family understood, They agree with the plan. I answered all questions, ASA Classification: ASA Class I Level of Care Med/Surg
[2016-05-26] MEDS ORDERED: ONDANSETRON INJ 2 MG/ML 2 ML VIAL IV PRN (09:45)
[2016-05-26] MEDS ORDERED: IBUPROFEN 600 MG TAB PO PRN (09:45)
[2016-05-26] MEDS ORDERED: KETOROLAC TROMETHAMINE 15 MG/ML VIAL IV PRN (09:45)
[2016-05-26 11:40] VITALS: BP 120/72; PULSE 67; TEMP 36.7; O2SAT 98
[2016-05-26 11:45] VITALS: O2SAT 98; Ht 165.1 cm; Wt 85.4 kg
[2016-05-26] MEDS: D5W AND 1/2NSS + 20MEQ KCL 1,000 ML IV SCH (12:28)
[2016-05-26] MEDS ORDERED: IV FLUIDS COMPLETED PRN (13:45)
[2016-05-26] MEDS: KETOROLAC TROMETHAMINE 15 MG/ML VIAL IV PRN (14:55)
[2016-05-26 15:41] VITALS: BP 113/75; PULSE 65; TEMP 36.5; O2SAT 98
--- NOTE | 2016-05-26 15:43 | EMERGENCY ROOM VISIT NOTE ---
History Report prepared by Brenden: Luis Alberto Sousa Under the Supervision of: Dr. Nic Braswell M.D. First contact with patient: 06:40 Chief Complaint: RIB PAIN Stated Complaint: PAIN UNDER RIGHT RIB AND NAUSEA History of Present Illness The patient is a 30 year old female who presents to the Emergency Room with complaints of persistent pain under her right ribs for the past 12-13 hours. The pain radiates to her back and is rated 7/10 in severity. The pain is worsened with movement but is not worse when she takes a deep breath. She had 2 Tylenol last night. The patient also complains of nausea and lightheadedness. She has had similar pain under her ribs before but never to this extent or lasting this long. The patient has a significant family history of gallbladder disease as all of her immediate relatives are s/p cholecystectomy. The patient follows up with Shiva Metz. The patient is nursing her . The patient had a small amount of vaginal spotting recently. Patient denies LOC, headache, fevers, chills, diaphoresis, visual changes, neck pain, chest pain, breathing difficulties, vomiting, abdominal pain, back pain, melena, hematochezia, urinary symptoms, numbness, weakness, lymphadenopathy, rash, or other complaints. Source of History: patient Onset: 12-13 hours ago Position: other (under right ribs) Symptom Intensity: 7/10 Timing: other (persistent) Modifying Factors (Worsening): movement Associated Symptoms: + nausea Review of Systems See HPI for pertinent positives and negatives. A total of ten systems were reviewed and were otherwise negative. Past Medical & Surgical Medical Problems: (1) Acute cholecystitis (2) elective repeat (3) uterine contractions in third trimester, antepartum (4) term with fall Surgical Problems: (1) H/O section (2) Hx of section Family History Cancer Gallbladder disease Social History Smoking Status: Never Smoker Marital Status: Housing Status: lives with family Current/Historical Medications Scheduled Multivit/Min/Iron/Fol Ac/Pren ( Vitamin), 1 TAB PO DAILY Allergies Coded Allergies: Gluten (Verified Allergy, Severe, INTESTINAL ISSUES, 05/26/16) [place] (Verified Allergy, Severe, ANAPHYLAXIS, 05/26/16) Cole (Verified Allergy, Severe, ANAPHYLAXIS, 05/26/16) Pineapple (Verified Allergy, Severe, ANAPHYLAXIS, 05/26/16) Clarithromycin (Verified Adverse Reaction, Intermediate, EMESIS, 05/26/16) Physical Exam Vital Signs Date Time Temp Pulse Resp B/P Pulse Ox O2 Delivery O2 Flow Rate FiO2 05/26/16 08:33 71 18 117/77 99 Room Air 05/26/16 06:33 36.7 95 18 116/66 98 Room Air Physical Exam GENERAL: Awake, alert, uncomfortable-appearing, in no distress HENT: Normocephalic, atraumatic. Oropharynx unremarkable. EYES: Normal conjunctiva. Sclera non-icteric. NECK: Supple. No nuchal rigidity. FROM. No JVD. RESPIRATORY: Clear to auscultation. CARDIAC: Regular rate, normal rhythm. Extremities warm and well perfused. Pulses equal. ABDOMEN: Soft, non-distended. Right upper quadrant tenderness to palpation. Positive Cagle's sign. No rebound or guarding. No masses. RECTAL: Deferred. MUSCULOSKELETAL: Chest examination reveals no tenderness. The back is symmetrical on inspection without obvious abnormality. There is no CVA tenderness to palpation. No joint edema. LOWER EXTREMITIES: Calves are equal size bilaterally and non-tender. No edema. No discoloration. NEURO: Normal sensorium. No sensory or motor deficits noted. SKIN: No rash or jaundice noted. Medical Decision & Procedures ER Provider Diagnostic Interpretation: Radiology results as stated below per my review and radiologist interpretation ABDOMINAL ULTRASOUND, RIGHT UPPER QUADRANT HISTORY: Right upper quadrant abdominal pain. COMPARISON: CT of the abdomen and pelvis August 18, 2014. FINDINGS: Liver is sonographically normal. There is no biliary ductal dilatation. Multiple gallstones are noted within the gallbladder. A sonographic Cagle sign was reported by the technologist. Gallbladder wall thickness was at the upper limits of normal. There was no pericholecystic fluid. The pancreas body is normal. The head and tail are obscured. There is no right hydronephrosis. IMPRESSION: 1. Cholelithiasis and positive sonographic Cagle's sign. No gallbladder wall thickening or pericholecystic fluid. The findings could reflect acute cholecystitis. A hepatobiliary scan could be obtained as indicated. 2. No biliary ductal dilatation. Electronically signed by: Tomas Campo M.D. 05/26/2016 7:58 AM Dictated Date/Time: 05/26/2016 7:55 AM Laboratory Results 3/29/17 07:10 Red Blood Count 4.86, Mean Corpuscular Volume 85.6, Mean Corpuscular Hemoglobin 29.4, Mean Corpuscular Hemoglobin Concent 34.4, Mean Platelet Volume 10.6, Neutrophils (%) (Auto) 75.3, Lymphocytes (%) (Auto) 19.3, Monocytes (%) (Auto) 4.9, Eosinophils (%) (Auto) 0.2, Basophils (%) (Auto) 0.1, Neutrophils # (Auto) 8.04, Lymphocytes # (Auto) 2.06, Monocytes # (Auto) 0.52, Eosinophils # (Auto) 0.02, Basophils # (Auto) 0.01 05/26/16 07:10 Test 05/26/16 07:10 05/26/16 08:20 White Blood Count 10.67 K/uL (4.8-10.8) Red Blood Count 4.86 M/uL (4.2-5.4) Hemoglobin 14.3 g/dL (12.0-16.0) Hematocrit 41.6 % (37-47) Mean Corpuscular Volume 85.6 fL (80-100) Mean Corpuscular Hemoglobin 29.4 pg (25-34) Mean Corpuscular Hemoglobin Concent 34.4 g/dl (32-36) Platelet Count 261 K/uL (130-400) Mean Platelet Volume 10.6 fL (7.4-10.4) Neutrophils (%) (Auto) 75.3 % Lymphocytes (%) (Auto) 19.3 % Monocytes (%) (Auto) 4.9 % Eosinophils (%) (Auto) 0.2 % Basophils (%) (Auto) 0.1 % Neutrophils # (Auto) 8.04 K/uL (1.4-6.5) Lymphocytes # (Auto) 2.06 K/uL (1.2-3.4) Monocytes # (Auto) 0.52 K/uL (0.11-0.59) Eosinophils # (Auto) 0.02 K/uL (0-0.5) Basophils # (Auto) 0.01 K/uL (0-0.2) RDW Standard Deviation 43.7 fL (36.4-46.3) RDW Coefficient of Variation 13.9 % (11.5-14.5) Immature Granulocyte % (Auto) 0.2 % Immature Granulocyte # (Auto) 0.02 K/uL (0.00-0.02) Anion Gap 10.0 mmol/L (3-11) Est Creatinine Clear Calc Drug Dose 101.6 ml/min Estimated GFR () 102.2 Estimated GFR (Non- 88.2 BUN/Creatinine Ratio 15.2 (10-20) Calcium Level 9.3 mg/dl (8.5-10.1) Total Bilirubin 0.4 mg/dl (0.2-1) Direct Bilirubin < 0.1 mg/dl (0-0.2) Aspartate Amino Transf (AST/SGOT) 16 U/L (15-37) Alanine Aminotransferase (ALT/SGPT) 22 U/L (12-78) Alkaline Phosphatase 103 U/L (45-117) Total Protein 7.8 gm/dl (6.4-8.2) Albumin 4.3 gm/dl (3.4-5.0) Lipase 128 U/L (73-393) Urine Color YELLOW Urine Appearance CLEAR (CLEAR) Urine pH 5.5 (4.5-7.5) Urine Specific [place] 1.009 (1.000-1.030) Urine Protein NEG (NEG) Urine Glucose (UA) NEG (NEG) Urine Ketones NEG (NEG) Urine Occult Blood 2+ (NEG) Urine Nitrite NEG (NEG) Urine Bilirubin NEG (NEG) Urine Urobilinogen NEG (NEG) Urine Leukocyte Esterase NEG (NEG) Urine WBC (Auto) 0 /hpf (0-5) Urine RBC (Auto) 0-4 /hpf (0-4) Urine Hyaline Casts (Auto) 0 /lpf (0-5) Urine Epithelial Cells (Auto) 0-5 /lpf (0-5) Urine Bacteria (Auto) NEG (NEG) Urine Test NEG (NEG) Laboratory results reviewed by me Medications Administered Medications (Trade) Dose Ordered Sig/Davie Route Start Time Stop Time Status Last Admin Dose Admin Sodium Chloride (Nss 1000ml) 1,000 ml @ 999 mls/hr Q1H1M STAT IV 05/26/16 06:40 05/26/16 07:40 DC 05/26/16 07:19 999 MLS/HR Ketorolac Tromethamine (Toradol Inj) 10 mg NOW STAT IV 05/26/16 06:57 05/26/16 06:58 DC 05/26/16 07:19 10 MG Ondansetron HCl (Zofran Inj) 4 mg NOW STAT IV 05/26/16 06:59 05/26/16 07:00 DC 05/26/16 07:19 4 MG Ketorolac Tromethamine (Toradol Inj) 15 mg Q6H PRN IV 05/26/16 09:45 05/31/16 09:44 05/26/16 14:55 15 MG ED Course 0640: NSS 1000 ml @ 999 mls/hr. 0654: The patient was evaluated in room B6. A complete history and physical exam was performed. 0657: Toradol 10 mg IV. 0659: Zofran 4 mg IV. 0830: Updated the patient. She still had right upper quadrant tenderness on repeat exam. 0834: Discussed the case with Dr. Walker, General Surgeon. He will evaluated the patient. Medical Decision Triage Nursing notes reviewed. The patient's presentation and history were concerning for abdominal pain. Etiologies such as PUD, biliary pathology, appendicitis, diverticulitis, obstruction, inflammatory bowel disease, renal colic, pancreatitis, mesenteric ischemia, aortic pathology, infections, genitourinary, UTI, perforated viscus, as well as others were entertained. The patient was evaluated. She was tender in the right upper quadrant. She was breast-feeding. I did give her Toradol and she had good reduction in her pain. She underwent ultrasound imaging. Blood work was unremarkable. Her ultrasound imaging did reveal signs concerning for acute cholecystitis. Consultation was made with general surgery. The patient was evaluated in the emergency department. She was admitted for further treatment. The chart was completed utilizing [employer] Speech voice recognition software. Grammatical errors, random word insertions, pronoun errors, and incomplete sentences are an occasional consequence of this system due to software limitations, ambient noise, and hardware issues. Any formal questions or concerns about the content, text, or information contained within the body of this dictation should be directly addressed to the physician for clarification. Consults Time Called: 08 Consulting Physician: Dr. Walker, General Surgeon Returned Call: [phone]: Discussed the case with Dr. Walker, General Surgeon. He will evaluated the patient. Impression Primary Impression: Acute cholecystitis Scribe Attestation The scribe's documentation has been prepared under my direction and personally reviewed by me in its entirety. I confirm that the note above accurately reflects all work, treatment, procedures, and medical decision making performed by me. Departure Information Dispostion Being Evaluated By Surgeon Referrals No Doctor, Assigned (PCP) Patient Instructions My [facility]
[2016-05-26 19:55] VITALS: BP 93/51; PULSE 76; TEMP 36.7
[2016-05-27] VITALS (8 sets, daily range): BP systolic 94–121; BP diastolic 47–68; PULSE 60–68; TEMP 36.2–36.7; O2SAT 95–97
[2016-05-27] MEDS: D5W AND 1/2NSS + 20MEQ KCL 1,000 ML IV SCH (00:22)
[2016-05-27] MEDS: KETOROLAC TROMETHAMINE 15 MG/ML VIAL IV PRN (07:55)
[2016-05-27 08:38] LABS: BASO % 0.3 %; BASO ABS # 0.02 K/uL (0-0.2); COMPLETE YES; EOS % 0.5 %; HEMATOCRIT 39.5 % (37-47); IG% 0.3 %; LYMPH % 36.5 %; LYMPH ABS # 2.33 K/uL (1.2-3.4); MEAN CELL VOLUME 85.9 fL (80-100); MEAN CORPUSCULAR HEMOGLOBIN 28.7 pg (25-34); MEAN CORPUSCULAR HGB CONC 33.4 g/dl (32-36); MEAN PLATELET VOLUME 10.1 fL (7.4-10.4); MONO % 4.9 %; NEUT % 57.5 %; PLATELET COUNT 226 K/uL (130-400); WHITE BLOOD COUNT 6.39 K/uL (4.8-10.8)
[2016-05-27 09:17] LABS: ALB/GLOB RATIO 1.2 (0.9-2); BUN/CREATININE RATIO 9.2 (10-20); CREATININE 0.85 mg/dl (0.60-1.20); POTASSIUM 4.1 mmol/L (3.5-5.1)
[2016-05-27] MEDS ORDERED: FENTANYL CITRATE INJ 50 MCG/1 ML 2 ML VIAL ONE ×5 (09:52→14:33)
[2016-05-27] MEDS ORDERED: MIDAZOLAM HCL 1 MG/ML 2ML VIAL ONE (09:52)
[2016-05-27] MEDS ORDERED: CEFOXITIN SOD 2 GM VIAL IV STA (10:41)
[2016-05-27] MEDS ORDERED: ATROPINE SULFATE 0.1 MG/ML 5ML SYR IV PRN (10:45)
[2016-05-27] MEDS ORDERED: ONDANSETRON INJ 2 MG/ML 2 ML VIAL IV PRN ×2 (10:45→13:15)
[2016-05-27] MEDS ORDERED: FENTANYL CITRATE INJ 50 MCG/1 ML 2 ML VIAL IV PRN (10:45)
[2016-05-27] MEDS ORDERED: EpHEDrine SULFATE INJ 50 MG/ML AMP IV PRN (10:45)
[2016-05-27] MEDS ORDERED: LIDOCAINE HCL 1% 20 ML VIAL ONE (10:57)
[2016-05-27] MEDS ORDERED: BACITRACIN OINT 15 GM TUBE ONE (10:57)
[2016-05-27] MEDS ORDERED: BUPIVACAINE 0.5 % 5 MG/1 ML MPF 30ML VIAL ONE (10:58)
[2016-05-27] MEDS ORDERED: CEFOXITIN IV 2,000 MG in DEXTROSE 5% 50ML 50 ML IV ONE (11:00)
--- NOTE | 2016-05-27 11:10 | Surgery Progress Note ---
Surgery Progress Note Date of Service May 27, 2016. Subjective + feeling well pt is doing better, less abdominal pain, no N/V, Objective Vital Signs: Date Time Temp Pulse Resp B/P Pulse Ox O2 Delivery O2 Flow Rate FiO2 05/27/16 10:40 36.8 98 20 119/81 99 Room Air 05/27/16 07:45 36.2 65 20 100/47 97 Room Air 05/27/16 07:45 97 Room Air 05/27/16 04:40 36.7 65 16 94/51 05/27/16 00:00 36.3 68 16 107/56 05/27/16 00:00 Room Air 05/26/16 19:55 36.7 76 16 93/51 05/26/16 16:30 Room Air 05/26/16 15:41 36.5 65 18 113/75 98 Room Air 05/26/16 11:45 98 Room Air 05/26/16 11:40 36.7 67 16 120/72 98 Room Air 05/26/16 11:40 Room Air 05/26/16 11:27 96 16 109/72 98 General Appearance: WD/WN Head: normocephalic Neck: supple, no JVD Respiratory/Chest: chest non-tender, lungs clear Cardiovascular: regular rate, rhythm, no edema, no gallop, no JVD Abdomen: normal bowel sounds, non tender, non distended, soft Extremities: normal range of motion, non-tender, normal inspection Laboratory Results: Results Past 24 Hours Test 05/27/16 08:00 Range/Units White Blood Count 6.39 4.8-10.8 K/uL Red Blood Count 4.60 4.2-5.4 M/uL Hemoglobin 13.2 12.0-16.0 g/dL Hematocrit 39.5 37-47 % Mean Corpuscular Volume 85.9 80-100 fL Mean Corpuscular Hemoglobin 28.7 25-34 pg Mean Corpuscular Hemoglobin Concent 33.4 32-36 g/dl Platelet Count 226 130-400 K/uL Mean Platelet Volume 10.1 7.4-10.4 fL Neutrophils (%) (Auto) 57.5 % Lymphocytes (%) (Auto) 36.5 % Monocytes (%) (Auto) 4.9 % Eosinophils (%) (Auto) 0.5 % Basophils (%) (Auto) 0.3 % Neutrophils # (Auto) 3.68 1.4-6.5 K/uL Lymphocytes # (Auto) 2.33 1.2-3.4 K/uL Monocytes # (Auto) 0.31 0.11-0.59 K/uL Eosinophils # (Auto) 0.03 0-0.5 K/uL Basophils # (Auto) 0.02 0-0.2 K/uL RDW Standard Deviation 44.7 36.4-46.3 fL RDW Coefficient of Variation 14.3 11.5-14.5 % Immature Granulocyte % (Auto) 0.3 % Immature Granulocyte # (Auto) 0.02 0.00-0.02 K/uL Sodium Level 144 136-145 mmol/L Potassium Level 4.1 3.5-5.1 mmol/L Chloride Level 111 98-107 mmol/L Carbon Dioxide Level 24 21-32 mmol/L Anion Gap 9.0 3-11 mmol/L Blood Urea Nitrogen 8 7-18 mg/dl Creatinine 0.85 0.60-1.20 mg/dl Est Creatinine Clear Calc Drug Dose 106.3 ml/min Estimated GFR () 108.1 Estimated GFR (Non- 93.2 BUN/Creatinine Ratio 9.2 10-20 Random Glucose 85 70-99 mg/dl Calcium Level 9.0 8.5-10.1 mg/dl Total Bilirubin 0.6 0.2-1 mg/dl Aspartate Amino Transf (AST/SGOT) 15 15-37 U/L Alanine Aminotransferase (ALT/SGPT) 20 12-78 U/L Alkaline Phosphatase 92 45-117 U/L Total Protein 6.4 6.4-8.2 gm/dl Albumin 3.5 3.4-5.0 gm/dl Globulin 2.9 2.5-4.0 gm/dl Albumin/Globulin Ratio 1.2 0.9-2 Assessment & Plan IMP : acute cholecystitis, cholelithiasis, Plan: pt will have laparoscopic cholecystectomy, possible open or cholangiogram , D/W benefits, risks and alternatives of the procedure, the risks -infection, bleeding, injury CBD, , pt understood, she signed consent, I answered all questions,
[2016-05-27] MEDS ORDERED: NEOSTIGMINE METHYLSULFATE 5 MG/5 ML SYR ONE (11:36)
[2016-05-27] MEDS ORDERED: DEXAMETHASONE SOD INJ 4 MG/ML VIAL ONE (11:36)
[2016-05-27] MEDS ORDERED: LIDOCAINE HCL 2% 2 ML VIAL (20MG/ML) ONE (11:36)
[2016-05-27] MEDS ORDERED: PROPOFOL IV EMULSION 10 MG/ML 20 ML VIAL IV ONE (11:36)
[2016-05-27] MEDS ORDERED: ONDANSETRON INJ 2 MG/ML 2 ML VIAL ONE (11:36)
[2016-05-27] MEDS ORDERED: ROCURONIUM BROMIDE 10 MG/ML 5 ML VIAL ONE (11:36)
[2016-05-27] MEDS ORDERED: GLYCOPYRROLATE INJ 0.2 MG/ML VIAL ONE (11:36)
--- NOTE | 2016-05-27 13:01 | [facility] Post Operative Brief Note ---
Immediate Operative Summary Operative Date May 27, 2016. Pre-Operative Diagnosis CHOLECYSTITIS, cholelithiasis Post-Operative Diagnosis SAME PREOP Procedure(s) Performed LAPAROSCOPIC CHOLECYSTECTOMY Surgeon DR.C. GONZALEZ Denitrator Surgeon(s) Abiel ESTEBAN Estimated Blood Loss 10ml Findings acute cholecystitis, cholelithiasis, significant gallbladder wall edema, thickening, Specimens GALL BLADDER Drains none Anesthesia general Complication(s) None Disposition Recovery Room / PACU
[2016-05-27] MEDS ORDERED: OXYC-57 PO (13:05)
--- NOTE | 2016-05-27 13:09 | Discharge Instructions ---
Discharge Instructions Date of Service May 27, 2016. Visit Reason for Visit: Acute Cholecystitis Discharge Discharge Diagnosis / Problem: S/P laparoscopic cholecystectomy Discharge Goals Goal(s): Decrease discomfort, Improve function Activity Recommendations Activity Limitations: per Instructions/Follow-up section Lifting Limitations: no more than 25 pounds Exercise/Sports Limitations: gradually increase as tolerated May Resume Sexual Activity: when tolerated Shower/Bathe: may shower/bathe in 3 days Driving or Machine Use: resume 3 days after discharge Anesthesia . Post Anesthesia Instructions: If you have had General Anesthesia or IV Sedation: * Do not drive today. * Resume driving when surgeon permits. * Do not make important decisions or sign legal documents today. * Call surgeon for: 1. Temperature elevations greater than 101 degrees F. 2. Uncontrollable pain. 3. Excessive bleeding. 4. Persistent nausea and vomiting. 5. Medication intolerance (nausea, vomiting or rash). * For nausea and vomiting use only clear liquids such as: tea, soda, bouillon until nausea subsides, then gradually increase diet as tolerated. * If you have any concerns or questions, call your surgeon's office. If physician is unavailable and it is an emergency, call 911 or go to the nearest emergency room. . Instructions / Follow-Up Instructions / Follow-Up keep the dressing on for 4 days, she can take a shower on 05/31/2016. no driving while taking pain medicine. Follow up 1 week, Diet Recommendations Recommended Home Diet: resume previous diet Procedures Procedures Performed: LAPAROSCOPIC CHOLECYSTECTOMY Pending Studies Studies pending at discharge: no Medical Emergencies . Who to Call and When: Medical Emergencies: If at any time you feel your situation is an emergency, please call 911 immediately. . Non-Emergent Contact Non-Emergency issues call your: Surgeon Call Non-Emergent contact if: you have a fever, temperature is above 100.5, your pain is not controlled, your pain is worsening, wound has increased drainage, wound has increased redness . . "Provider Documentation" section prepared by Sharlene Walker.
[2016-05-27] MEDS ORDERED: KETOROLAC TROMETHAMINE 15 MG/ML VIAL IV PRN (13:15)
[2016-05-27] MEDS ORDERED: D5W AND 1/2NSS + 20MEQ KCL 1,000 ML IV SCH (13:15)
[2016-05-27] MEDS ORDERED: OXYCODONE/ACETAMINOPHEN 5-325 TAB PO PRN (13:15)
--- NOTE | 2016-05-27 13:34 | Anesthesiology Progress Note ---
Anesthesia Post Op Note Date & Time May 27, 2016 at 13:34 Vital Signs Pain Intensity: 1 Vital Signs Past 12 Hours Date Time Temp Pulse Resp B/P Pulse Ox O2 Delivery O2 Flow Rate FiO2 05/27/16 13:32 36.5 05/27/16 13:30 62 16 05/27/16 13:30 62 16 111/60 97 05/27/16 13:25 59 13 106/58 97 05/27/16 13:25 59 13 05/27/16 13:20 60 16 05/27/16 13:20 59 16 110/58 97 05/27/16 13:19 Nasal Cannula 3 05/27/16 13:15 61 17 05/27/16 13:15 61 17 110/60 100 05/27/16 13:10 64 16 05/27/16 13:10 63 16 109/63 100 05/27/16 13:07 108/63 05/27/16 13:00 37.1 69 16 109/62 99 Mask 10 05/27/16 10:40 36.8 98 20 119/81 99 Room Air 05/27/16 07:45 36.2 65 20 100/47 97 Room Air 05/27/16 07:45 97 Room Air 05/27/16 04:40 36.7 65 16 94/51 Notes Mental Status: alert / awake / arousable, participated in evaluation Pt Amnestic to Procedure: Yes Nausea / Vomiting: adequately controlled Pain: adequately controlled Airway Patency, RR, SpO2: stable & adequate BP & HR: stable & adequate Hydration State: stable & adequate Anesthetic Complications: no major complications apparent
--- NOTE | 2016-05-27 14:46 | DISCHARGE SUMMARY ---
DATE OF DISCHARGE: 05/27/2016. ADMITTING DIAGNOSIS: Acute cholecystitis, cholelithiasis. POSTOPERATIVE DIAGNOSIS: Same. OPERATION: Laparoscopic cholecystectomy. SURGEON: Sharlene Walker M.D. DETAILS OF DISCHARGE SUMMARY: This is a 30-year-old female who presented to the ED with right upper quadrant pain. The patient had ultrasound showing acute cholecystitis with cholelithiasis. The patient was admitted to hospital overnight and the patient feels better. Patient today underwent laparoscopic cholecystectomy. The procedure went very well and after procedure patient back to recovery room in stable condition. PHYSICAL EXAMINATION: VITAL SIGNS: The patient's vital signs stable. GENERAL: The patient is alert, awake, oriented x3. HEAD, EYES, EARS, NOSE, AND THROAT: Within normal limitation. NEUROLOGIC: Intact. NECK: No JVD. CHEST: Bilateral lungs sound clear. HEART: Normal S1, S2. No murmur. ABDOMEN: Soft, no distention. All the dressing intact. EXTREMITIES: No edema. PLAN: The patient wheeled back to his surgical room. Once the patient stable and meets discharge criteria, the patient will discharge to home. I did talk to the patient and patient's family member about the postop care instructions and we will follow up the patient in 1 week. They understand.
[2016-05-27] MEDS ORDERED: NURSING VERBAL MED ORDER ONE (15:00)
[2016-05-27] MEDS ORDERED: MoRPHine SULFATE 4 MG/ML 1 ML CARP\\VIAL IV ONE (15:15)
--- NOTE | 2016-05-27 15:43 | OPERATIVE REPORT ---
DATE OF OPERATION: 05/27/2016 PREOPERATIVE DIAGNOSES: Acute cholecystitis and cholelithiasis. POSTOPERATIVE DIAGNOSES: Same. PROCEDURE: Laparoscopic cholecystectomy. SURGEON: Sharlene Walker MD ANESTHESIA: General. ESTIMATED BLOOD LOSS: About 10 mL FINDINGS: Acute cholecystitis, significant inflammation on the gallbladder wall, edema and thickening. COMPLICATIONS: None. INDICATIONS FOR THE PROCEDURE: This is a 30-year-old female who presented to the ED with right upper quadrant pain. The patient had ultrasound showing acute cholecystitis with cholelithiasis. The patient was admitted to the hospital overnight and today we decided to do the laparoscopy cholecystectomy. I did talk to the patient about the benefit and risk alternate procedure. I indicated the risks may include but not limited such as bleeding, infection, injury to common bile duct, injury to bowel, bile leak and incisional hernia, and even . The patient understands. She signed informed consent and I answered all questions. DETAILS OF PROCEDURE: We brought the patient to the OR and put the patient in the supine position. The patient received SCD on bilateral legs to prevent DVT. Also, the patient received 2 gram cefoxitin IV for prophylactic antibiotic. The patient received general anesthesia without difficulty. The abdomen was prepped and draped in routine sterile fashion. After a timeout, I injected the local anesthesia by using 0.5% lidocaine mixed with 0.25% Marcaine just above umbilical, opened fascia and opened peritoneum under direct vision. I put a Dannielle trocar in, connected to CO2 to create pneumoperitoneum. Flow rate at 6 liter per minute. Pressure not more than 14 mmHg. Once we get a nice pneumoperitoneum, we put 10-mm camera in, looked around the abdomen shows no more findings on the stomach, small bowel, large bowel and liver. However, the gallbladder with significant inflammation, edema, wall thickening showed acute cholecystitis. Then, we put another three 5-mm trocar on the right upper quadrant. Once all trocars in, we put grasper in to hold the base of the gallbladder, put direction to the diaphragm and put another grasper to hold the pouch over the gallbladder, put the latter to expose the triangle of Calot. The cystic duct was identified and mobilized. Then, I used two 5-mm metal clips on the proximal cystic duct, one on the distal cystic duct. Then, I used scissor transection the cystic duct. Then, the cystic artery was identified and mobilized. Then, I used two 5-mm metal clips on the proximal cystic artery, one the distal cystic artery. Then, I used scissor transection the cystic artery. Then, I used Bovie to take down the gallbladder through the liver bed without difficulty. Rechecked, no active bleeding, no bile leak. Then, we removed the gallbladder through the catch bag and then we reinserted the Dannielle trocar in, connected to CO2 to create pneumoperitoneum, again looked around the abdomen, no bile leak, no active bleeding, and no injury to bowel. Then, we removed all trocars under direct vision. No active bleeding. The pneumoperitoneum was reduced. Then, I closed the umbilical incision, fascial layer by using #1 Vicryl [id number] x2, closed subcutaneous layer by using 2-0 Vicryl, closed skin by using 4-0 Vicryl. Then, we closed another three 5-mm trocar site skin only by using 4-0 Vicryl. Then, we put the dressing on. The patient tolerated the procedure well. After the procedure, the patient transferred to recovery room in stable condition. All the instrument, needle and sponge count correct x2 at the end of case and after the procedure, I did talk to the patient and patient's family member. They understand procedure we did in the OR and the OR finding. We will follow up the patient in 1 week. Also, I gave patient the postop care instruction, they understand. I attest to the content of the Intraoperative Record and any orders documented therein. Any exceptio ns are noted below.
== END 2016-05-27 18:24 | disposition home or self-care (01) ==
LOC: ENRESERV → ENRESERVDT → ENRESERVTM → C.EDB 06:32 → C.MS4N 09:46 → EDBEDREQSVC 10:26
PROVIDERS: ADMIT Surgery; ATTEND Surgery
DX: K80.66 Calculus of gallbladder and bile duct with acute and chronic cholecystitis without obstruction (principal)

== ENCOUNTER 2018-06-07 03:00 | Inpatient (IN) ==
--- NOTE | 2018-05-24 12:29 | PAT Medication Instructions ---
Medication Instructions Date of Service May 24, 2018 Home Medications PNV cmb#95-ferrous fumarate-FA 1 tab PO DAILY lactobacillus combination no.4 3,000 mmu cells PO DAILY DO NOT take the morning of surgery PNV cmb#95-ferrous fumarate-FA 1 tab PO DAILY lactobacillus combination no.4 3,000 mmu cells PO DAILY Other Notes If you have any questions please call us at [phone] or [phone] or [phone] or [phone]
--- NOTE | 2018-05-24 12:54 | Anesthesiology Consultation ---
Date of Service May 24, 2018 Assessment & Plan (1) Encounter for pre-operative examination: Per OB office, no labs to be done at PAT visit; to be drawn AM day of c/s Chart Review Chart Review: Acceptable Risk for Surgery (Pending labs AM DOS) and Patient seen in Pre Admission Testing Teaching & Discussion Pre-Anesthesia Teaching/Discussion Notes: Instructed NPO after midnight before surgery,except medications with 15 cc of water. Medication instructions provided according to the PAT guidelines. History Surgery Operation Date: 06/07/18 07:30 Proposed Procedures p Section in LD - Golden Voss MD Height/Weight Height: 5 ft 5 in Weight: 105.9 kg Allergies Allergy/AdvReac Type Severity Reaction Status Date / Time gluten Allergy Severe "INTESTINAL Verified 05/24/18 12:27 ISSUES"; HX CELIAC DISEASE matthew Allergy Severe ANAPHYLAXIS Verified 05/17/18 08:57 pineapple Allergy Severe ANAPHYLAXIS Verified 05/17/18 08:57 clarithromycin AdvReac Intermediate EMESIS Verified 05/17/18 08:57 Medications Home Medications Medication Instructions Recorded Confirmed Last Taken PNV cmb#95-ferrous fumarate-FA 1 tab PO DAILY 05/17/18 05/17/18 Unknown [] lactobacillus combination no.4 3,000 mmu cells PO DAILY 05/17/18 05/17/18 Unknown [Probiotic] Past Medical History Medical History History of celiac disease Obesity Past Surgical History Surgical History History of section 2013= 2/2 PROLONGED LABOR 02/2016= SAB @ L3-L4 X 1 ATTEMPT AT [facility] (GOOD PAIN CONTROL) History of cholecystectomy History of tonsillectomy Past Anesthesia History No Hx of Anesthesia Complications and No Family Hx of Anesthesia Complications History of PONV No Motion Sickness Screening History of Motion Sickness: No Social History Smoking Status: Never smoker Do You Dip or Chew Tobacco: No Hx Alcohol Use: No Alcohol Intake Frequency Comment: 0 Hx Substance Use: No substance use type: does not use Last Used Substance Other:: 0 Exercise / Class Metabolic Activity III < 4 Walking/Shop/Light housework Review of Systems Patient denies chest pain, shortness of breath, cough, wheezing, palpitations. Physical Exam Vital Signs VITALS BP 118/77 P 97 TEMP 98.5 SP02 97%RA RESP 16 PHYSICAL Full neck and c-spine range of motion. Full TMJ range of motion. TMD 3 finger breaths Mallampati Score 2 Dentition: intact Lungs: clear throughout to auscultation Cardiac: regular rate and rhythm, no murmurs noted Spine: normal Extremities: no edema
[2018-06-07] MEDS ORDERED: LACTATED RINGER'S 1,000 ML IV SCH ×4 (03:45→09:00)
[2018-06-07 04:09] LABS: Eosinophils # (auto) 0.05 K/uL (0-0.5); Eosinophils % (auto) 0.5 %; Hematocrit (blood only) 34.3 % (37-47); Hemoglobin 11.6 g/dL (12.0-16.0); Immature Granulocytes # (auto) 0.05 K/uL (0.00-0.02); Immature Granulocytes % (auto) 0.5 %; Lymphocytes % (auto) 22.8 %; Mean Corpuscular Volume 85.8 fL (80-100); Mean Platelet Volume 10.3 fL (7.4-10.4); Monocytes % (auto) 4.6 %; Neutrophils # (auto) 7.86 K/uL (1.4-6.5); Neutrophils % (auto) 71.6 %; Platelet Count 203 K/uL (130-400); RDW Coefficient of Variation 13.1 % (11.5-14.5); RDW Standard Deviation 40.9 fL (36.4-46.3); White Blood Count 10.96 K/uL (4.8-10.8)
[2018-06-07 05:04] LABS: Mean Corpuscular Hgb Conc 33.8 g/dL (32-36)
[2018-06-07] MEDS ORDERED: CEFAZOLIN 3,000 MG in DEXTROSE 5% 50 ML IV SCH (06:00)
[2018-06-07] MEDS ORDERED: CITRIC ACID/SODIUM CITRATE 15 ML UDC PO SCH ×2 (06:00)
--- NOTE | 2018-06-07 07:05 | History & Physical Bridge Note ---
Date of Service June 07, 2018 History & Physical Bridge Note I have examined the patient, reviewed the History & Physical and in the interval since the performance of the History & Physical I have noted the following changes of clinical significance: no changes noted
[2018-06-07] MEDS ORDERED: MoRPHine SULFATE PF 1 MG/ML 10 ML AMP/VIAL ONE (07:06)
[2018-06-07] MEDS ORDERED: NALOXONE HCL 0.4 MG/1 ML VIAL/CARP IV PRN (07:21)
[2018-06-07] MEDS ORDERED: MoRPHine SULFATE PF 1 MG/ML 10 ML AMP/VIAL INT SPINAL ONE (07:21)
[2018-06-07] MEDS ORDERED: DiphenhydrAMINE HCL 50 MG/ML VIAL IV PRN (07:21)
[2018-06-07] MEDS ORDERED: NALBUPHINE HCL INJ 10 MG/ML AMP IV PRN (07:21)
[2018-06-07] MEDS ORDERED: NALOXONE HCL 0.08 MG in SYRINGE 1.8 ML IV PRN (07:21)
[2018-06-07] MEDS ORDERED: LACTATED RINGER'S 500 ML IV PRN (07:21)
[2018-06-07] MEDS ORDERED: NALOXONE HCL 1 MG in SODIUM CHLORIDE 0.9% 1000ML 1,000 ML IV PRN (07:21)
[2018-06-07] MEDS ORDERED: ONDANSETRON INJ 2 MG/ML 2 ML VIAL IV PRN (07:21)
[2018-06-07] MEDS ORDERED: MoRPHine SULFATE 2 MG/ML CARP IV PRN (07:21)
[2018-06-07] MEDS ORDERED: PROMETHAZINE HCL 12.5 MG in SODIUM CHLORIDE 0.9% 50 ML IV PRN (07:21)
[2018-06-07] MEDS ORDERED: ePHEDrine sulfate 50 MG/ML AMP IV PRN (07:21)
[2018-06-07] MEDS ORDERED: SODIUM CHLORIDE 0.9% 1000ML 1,000 ML IV SCH (07:30)
[2018-06-07] MEDS ORDERED: NO NARCOTICS OR SEDATIVES SCH (07:30)
[2018-06-07] MEDS ORDERED: DC INTRASPINAL MORPHINE SCH (07:30)
--- NOTE | 2018-06-07 07:54 | History and Physical Report ---
DATE OF ADMISSION: 06/07/2018 CHIEF COMPLAINT: Elective repeat section. HISTORY OF PRESENT ILLNESS: The patient is a 32-year-old female, para 2-0-0-2, who presents at 39 weeks and 6 days for an elective repeat section. Her care and course during this has been uncomplicated. PAST MEDICAL HISTORY: Significant for history of migraines and celiac disease. PAST SURGICAL HISTORY: History of x2, laparoscopic cholecystectomy and tonsils. FAMILY HISTORY: Noncontributory. SOCIAL HISTORY: Denies smoking, alcohol or drug use. ALLERGIES: CLARITHROMYCIN, GLUTEN AND SOME NUTRITIONAL SUPPLEMENTS. PHYSICAL EXAMINATION: VITAL SIGNS: Her weight is 232 pounds, BMI is 38.6. HEENT: Within normal limits. LUNGS: Clear to auscultation. HEART: Regular rate and rhythm. ABDOMEN: Soft, nontender, gravid. heart tones category 1. EXTREMITIES: Within normal limits. LABORATORY DATA: Group B strep is negative. ASSESSMENT: Term , elective repeat section is the plan.
[2018-06-07] MEDS ORDERED: ePHEDrine sulfate 50 MG/ML SYR ONE (08:14)
[2018-06-07] MEDS ORDERED: LIDOCAINE HCL 2% MPF (LOCAL) 5 ML VIAL INFIL ONE (08:14)
[2018-06-07] MEDS ORDERED: PROPOFOL IV EMULSION 10 MG/ML 20 ML VIAL IV ONE (08:14)
[2018-06-07] MEDS ORDERED: OXYTOCIN 10 UNITS/ML VIAL ONE (08:14)
[2018-06-07] MEDS ORDERED: ONDANSETRON INJ 2 MG/ML 2 ML VIAL ONE (08:14)
[2018-06-07] MEDS ORDERED: PHENYLEPHRINE 100MCG/ML 5ML SYR ONE (08:14)
[2018-06-07] MEDS ORDERED: METOCLOPRAMIDE HCL INJ 5 MG/ML 2 ML VIAL ONE (08:14)
--- NOTE | 2018-06-07 08:43 | Post Operative Brief Note ---
Immediate Post Op Note v1 Date of Surgery June 07, 2018 Pre & Post Diagnosis Operation Date: 06/07/18 07:30 Pre-Op Diagnosis: 1. Term Elective Repeat Post-Op Diagnosis: 1. Repeat Lower Uterine Transverse Caesarean Section for the of a viable male infant at 0804 Procedure Operation Date: 06/07/18 07:30 Actual Procedures p Section in LD; Live male at 0804(Bilateral) - Golden Voss MD Surgeon Golden Voss MD Graduate Nurse Shilo Estimated Blood Loss 700 Findings Consistent with Post-Op Diagnosis Drains Choe Catheter
[2018-06-07] MEDS ORDERED: SUPERCREAM 0.870% 15 GM JAR EXT PRN (08:50)
[2018-06-07] MEDS ORDERED: SENNA 8.6 MG TAB PO PRN (08:50)
[2018-06-07] MEDS ORDERED: MAGNESIUM HYDROXIDE SUSP 30 ML UDC PO PRN (08:50)
[2018-06-07] MEDS ORDERED: BENZOCAINE 20% AER SPR 82.5 GM CAN EXT PRN (08:50)
[2018-06-07] MEDS ORDERED: DIPHTHERIA/TETANUS/PERTUSSIS 0.5 ML SYR/VIAL IM ONE (08:50)
[2018-06-07] MEDS ORDERED: HYDROCORTISONE ACETATE 25 MG SUPP PR PRN (08:50)
[2018-06-07] MEDS: KETOROLAC 30 MG/ML VIAL IV PRN ×2 (09:40→17:23)
[2018-06-07] MEDS ORDERED: NON-FORMULARY MEDICATION (Pnv Cmb#95-Ferrous Fumarate-Fa [Prenatal] 1 TAB) PO SCH (10:04)
[2018-06-07] MEDS: OXYTOCIN 20 UNITS in LACTATED RINGER'S 1,000 ML IV SCH ×2 (10:56→20:07)
--- NOTE | 2018-06-07 12:07 | Anesthesiology Progress Note ---
Date of Service June 07, 2018 Anesthesia Post Procedure Vital Signs Vital Signs: Temp Pulse Resp BP Pulse Ox 06/07/18 11:11 89 100 06/07/18 11:06 94 H 100 06/07/18 11:01 89 113/59 L 100 06/07/18 10:56 81 100 06/07/18 10:51 95 H 114/57 L 100 06/07/18 10:46 87 100 06/07/18 10:41 100 H 112/56 L 100 06/07/18 10:36 82 100 06/07/18 10:31 82 114/58 L 100 06/07/18 10:26 88 100 06/07/18 10:21 84 118/59 L 100 06/07/18 10:20 80 18 118/59 L 100 06/07/18 10:16 95 H 100 06/07/18 10:11 94 H 120/57 L 100 06/07/18 10:06 91 H 100 06/07/18 10:01 89 115/58 L 100 06/07/18 09:58 81 116/57 L 06/07/18 09:56 90 100 06/07/18 09:51 90 113/57 L 100 06/07/18 09:50 37.1 C 94 H 18 113/57 L 99 06/07/18 09:46 80 100 06/07/18 09:41 95 H 99 06/07/18 09:40 90 18 107/52 L 100 06/07/18 09:36 89 99 06/07/18 09:31 82 99 06/07/18 09:30 83 18 164/57 H 100 06/07/18 09:26 84 99 06/07/18 09:24 85 134/60 06/07/18 09:21 86 98 06/07/18 09:20 87 18 151/67 H 99 06/07/18 09:16 81 99 06/07/18 09:13 80 136/55 L 06/07/18 09:11 89 98 06/07/18 09:10 84 18 136/55 L 98 06/07/18 09:08 82 93 06/07/18 09:06 90 98 06/07/18 09:01 85 100 06/07/18 09:00 81 18 100 06/07/18 08:56 96 H 100 06/07/18 08:53 90 143/56 H 04/10/19 08:51 97 H 100 06/07/18 08:50 37.0 C 91 H 18 143/56 H 100 06/07/18 07:09 101 H 130/87 06/07/18 03:32 36.4 C L 109 H 20 116/77 06/07/18 03:08 109 H 116/77 06/07/18 03:07 36.4 C L 20 Pain Intensity Lower Medial Abdomen: Pain Intensity: 2 Notes Mental Status: alert / awake / arousable Patient Amnestic to Procedure: Yes Nausea / Vomiting: adequately controlled Pain: adequately controlled Airway Patency, RR, SpO2: stable & adequate BP & HR: stable & adequate Hydration State: stable & adequate Neuraxial Anesthesia: was administered and sensory block is resolving Anesthetic Complications: no major complications apparent
--- NOTE | 2018-06-07 12:40 | Operative Report ---
DATE OF OPERATION: 06/07/2018 PREOPERATIVE DIAGNOSIS: Term elective repeat section. POSTOPERATIVE DIAGNOSIS: Term elective repeat section. PROCEDURE: Repeat section, low segment transverse. SURGEON: Golden Voss MD [employer] SUPERVISOR: Dr. Lao. ANESTHESIA: Spinal with Duramorph. ESTIMATED BLOOD LOSS: 700 mL. TOTAL FLUIDS: 2800 mL. URINE: 75 mL CLINICAL HISTORY: The patient is a 32-year-old female, para 2-0-0-2, at 39 weeks, admitted for an elective repeat section. The patient received antibiotics preop before the skin incision and a timeout was called prior to the start of the procedure. DESCRIPTION OF PROCEDURE: Under satisfactory spinal anesthesia, the patient was prepped and draped in usual sterile fashion. She was tested for adequate analgesia. The patient had a prior low segment transverse. A low segment transverse incision through a prior Pfannenstiel incision was made entering into the abdominal cavity in successive layers without difficulty. There were several adhesions that were encountered on the fascia that was stuck to the peritoneum and to the uterus; these were lysed with sharp and Bovie dissection. The uterus was dextrorotated. Pickups with teeth were used to develop a bladder flap. This was sharply dissected down. A low segment transverse incision over the lower uterine segment was made. The incision was nicked. Amniotic fluid was clear and copious. The incision was widened in the AP diameter. The infant was found to be in the occiput transverse position, was delivered with the aid of fundal pressure. Live male. Cord was then doubly clamped and cut. Baby handed to bias cutting machine operator. Apgars 8 and 8. weight was 8 pounds 4 ounces. Cord blood was then obtained. Placenta was then delivered spontaneously and intact. Uterus was then exteriorized. Ring forceps were then placed on both margins in the inferior margin and another ring was used to dilate the cervix. The uterus was closed in a double layer closure with 0 Vicryl suture in a continuous interlocking fashion followed by a second imbricating layer. No active bleeding was noted. Tubes, ovaries bilaterally were found to be within normal limits. Uterus was then inspected. No active bleeding was noted. The initial sponge, needle and instrument count were found to be correct. Uterus was placed back into the normal anatomical position. Lower uterine segment was once more inspected. The count was correct. The fascia was then reapproximated with 0 Vicryl suture in a continuous fashion with 0 Vicryl suture. The subcuticular space was irrigated with saline. No active bleeding. All remaining instruments were accounted for. The subcuticular space was closed with 2-0 plain suture and the skin was then reapproximated with 4-0 Monocryl suture. Steri-Strips were then applied. Clear urine was noted from the Choe. Estimated blood loss 700 mL. The final sponge, needle, and instrument count were found to be correct. The patient was taken to recovery room in stable condition. I attest to the content of the Intraoperative Record and any orders documented therein. Any exception s are noted below.
[2018-06-07] MEDS: PRENATAL VITAMIN 1 TAB PO SCH (12:43)
[2018-06-07] MEDS: SIMETHICONE 80 MG CHEW PO SCH ×4 (12:44→21:09)
[2018-06-07] MEDS: DOCUSATE SODIUM 100 MG CAP PO SCH ×2 (12:44→21:09)
[2018-06-07] MEDS: LACTOBACILLUS ACIDOPHILUS (FLORANEX) TAB PO SCH (12:47)
[2018-06-08] MEDS ORDERED: PROMETHAZINE HCL 25 MG in SODIUM CHLORIDE 0.9% 50 ML IV PRN (01:22)
[2018-06-08] MEDS ORDERED: DiphenhydrAMINE HCL 50 MG/ML VIAL IV PRN (01:22)
[2018-06-08] MEDS ORDERED: ONDANSETRON INJ 2 MG/ML 2 ML VIAL IV PRN (01:22)
[2018-06-08] MEDS ORDERED: KETOROLAC 30 MG/ML VIAL IV PRN (01:22)
[2018-06-08] MEDS ORDERED: MEPERIDINE HCL 50 MG/ML CARP IV PRN (01:22)
[2018-06-08 07:07] LABS: Basophils # (auto) 0.01 K/uL (0-0.2); Basophils % (auto) 0.1 %; Eosinophils # (auto) 0.02 K/uL (0-0.5); Eosinophils % (auto) 0.2 %; Hematocrit (blood only) 29.8 % (37-47); Hemoglobin 9.9 g/dL (12.0-16.0); Immature Granulocytes # (auto) 0.03 K/uL (0.00-0.02); Immature Granulocytes % (auto) 0.3 %; Lymphocytes # (auto) 1.54 K/uL (1.2-3.4); Lymphocytes % (auto) 13.9 %; Mean Corpuscular Hgb Conc 33.2 g/dL (32-36); Mean Corpuscular Volume 85.6 fL (80-100); Mean Platelet Volume 10.7 fL (7.4-10.4); Monocytes # (auto) 0.74 K/uL (0.11-0.59); Monocytes % (auto) 6.7 %; Neutrophils # (auto) 8.75 K/uL (1.4-6.5); Neutrophils % (auto) 78.8 %; Platelet Count 173 K/uL (130-400); RDW Coefficient of Variation 13.4 % (11.5-14.5); RDW Standard Deviation 41.7 fL (36.4-46.3); Red Blood Count 3.48 M/uL (4.2-5.4); White Blood Count 11.09 K/uL (4.8-10.8)
--- NOTE | 2018-06-08 07:17 | Anesthesiology Progress Note ---
Date of Service June 08, 2018 pt.is w/o c/o H/A,LE weakness or paresthesias or LE pain; Pt is up and ambulating,No apparent anesthetic sequelae. Physical Exam Vital Signs Last Vital Signs Temp 36.8 C 06/08/18 04:00 Pulse 97 H 06/08/18 04:00 Resp 18 06/08/18 04:00 BP 110/77 06/08/18 04:00 Pulse Ox 98 06/08/18 04:00 Results & Data Medications Administered Docusate Sodium (Colace) 100 mg PO BID BISI Stop: 07/07/18 09:29 Last Admin: 06/07/18 21:09 Dose: 100 mg Documented by: [id number] Admin: 06/07/18 12:44 Dose: Not Given Documented by: [id number] Lactated Ringer's (Lr) 1,000 mls @ 125 mls/hr IV .Q8H [facility] Stop: 07/07/18 04:32 Last Infusion: 06/07/18 21:07 Dose: 0 mls/hr Documented by: [id number] Admin: 06/07/18 07:00 Dose: 125 mls/hr Documented by: [id number] Ketorolac Tromethamine (Toradol) 30 mg IV Q6H PRN PRN Reason: Pain Stop: 06/13/18 01:21 Last Admin: 06/08/18 01:47 Dose: 30 mg Documented by: [id number] Lactobacillus Acidophilus (Floranex) 4 tab PO DAILY [facility] Stop: 07/07/18 10:29 Last Admin: 06/07/18 12:47 Dose: Not Given Documented by: [id number] Prenat Multivit/Laser Print Operator/Iron/Folic Ac ( Vitamin) 1 tab PO QAM [facility] Stop: 07/07/18 08:59 Last Admin: 06/07/18 12:43 Dose: Not Given Documented by: [id number] Simethicone (Mylicon) 80 mg PO QID [facility] Stop: 07/07/18 09:29 Last Admin: 06/07/18 21:09 Dose: 80 mg Documented by: [id number] Admin: 06/07/18 17:16 Dose: 80 mg Documented by: [id number] Cosigned by: [id number] Admin: 06/07/18 12:46 Dose: 80 mg Documented by: [id number] Admin: 06/07/18 12:44 Dose: Not Given Documented by: [id number]
[2018-06-08] MEDS: IBUPROFEN 600 MG TAB PO PRN ×5 (07:38→23:09)
[2018-06-08] MEDS: OXYCODONE/ACETAMINOPHEN 5mg/325mg TAB PO PRN ×5 (07:39→23:09)
[2018-06-08] MEDS: DOCUSATE SODIUM 100 MG CAP PO SCH ×2 (08:34→19:34)
[2018-06-08] MEDS: SIMETHICONE 80 MG CHEW PO SCH ×4 (08:35→23:08)
[2018-06-08] MEDS: FERROUS SULFATE 325 MG TAB PO SCH (08:35)
[2018-06-08] MEDS: PRENATAL VITAMIN 1 TAB PO SCH (08:35)
[2018-06-08] MEDS: LACTOBACILLUS ACIDOPHILUS (FLORANEX) TAB PO SCH (08:36)
--- NOTE | 2018-06-08 09:53 | Obstetrical Progress Note ---
Date of Service June 08, 2018 Assessment & Plan (1) delivery delivered: c/sec day #1 pt doing well no complaints continue day #1 care Subjective Ambulation: ambulating normally Voiding: no voiding problems Passing Gas:: Yes Diet Tolerance:: clear liquids Lochia:: Small Feeding Type:: breast feeding Review of Systems All systems reviewed & are unremarkable except as noted in HPI & below Physical Exam Vital Signs (Past 24 Hours) Last Vital Signs Temp 36.5 C 06/08/18 08:20 Pulse 108 H 06/08/18 08:20 Resp 18 06/08/18 08:20 BP 112/76 06/08/18 08:20 Pulse Ox 96 06/08/18 08:20 Constitutional WD/WN, vitals as above well developed and well nourished Eyes PERRL, conjunctivae normal, anicteric sclerae ENMT external ear and nose normal, oropharynx normal Neck trachea midline, no thyromegaly Respiratory normal respiratory effort, lungs clear to auscultation Cardiovascular RRR, no murmur, no edema Chest (Breasts) normal inspection/palpation of breasts Gastrointestinal (Abdomen) normal bowel sounds, soft, nontender, no hepatosplenomegaly Musculoskeletal no cyanosis or clubbing, extremities motor strength 5/5 Skin no rashes, warm and dry + incision (Clean,dry and intact) Neurologic patellar DTR's 2+ bilat, sensation intact Psychiatric A+Ox3, euthymic affect Genitourinary normal external appearance Lymphatic no cervical or axillary lymphadenopathy
[2018-06-08] MEDS ORDERED: BISACODYL 5 MG TABEC PO SCH (20:00)
[2018-06-09] MEDS: OXYCODONE/ACETAMINOPHEN 5mg/325mg TAB PO PRN ×3 (03:22→11:41)
[2018-06-09] MEDS: IBUPROFEN 600 MG TAB PO PRN ×3 (03:23→11:40)
[2018-06-09 06:22] LABS: Hematocrit (blood only) 30.6 % (37-47); Hemoglobin 9.9 g/dL (12.0-16.0)
[2018-06-09] MEDS: DOCUSATE SODIUM 100 MG CAP PO SCH (07:25)
[2018-06-09] MEDS: SIMETHICONE 80 MG CHEW PO SCH ×2 (07:26→11:42)
[2018-06-09] MEDS: LACTOBACILLUS ACIDOPHILUS (FLORANEX) TAB PO SCH (07:26)
[2018-06-09] MEDS: FERROUS SULFATE 325 MG TAB PO SCH ×2 (07:26→07:27)
[2018-06-09] MEDS: PRENATAL VITAMIN 1 TAB PO SCH (07:27)
--- NOTE | 2018-06-09 07:46 | Obstetrical Progress Note ---
Date of Service June 09, 2018 Subjective Patient is seen and examined. She feels well, no complaints. Likes to be discharged today. Pain is under control with oral meds. Ambulating without dizziness Voiding without difficulty Tolerating regular diet with out N&V Flatus + BM neg Bleeding is minimal No fever/ chills/ CP/ SOB/ N&V/ Leg pain Breast feeding without problems Vital Signs Temp Pulse Resp BP Pulse Ox 06/08/18 23:00 36.8 C 99 H 18 99/58 L 96 06/08/18 19:40 36.6 C 90 16 108/72 97 06/08/18 16:06 36.6 C 100 H 18 121/80 98 06/08/18 08:20 36.5 C 108 H 18 112/76 96 Lab Results 06/07/18 06/07/18 06/08/18 Range/Units 03:47 03:47 06:28 WBC 10.96 H 11.09 H (4.8-10.8) K/uL RBC 4.00 L 3.48 L (4.2-5.4) M/uL Hgb 11.6 L 9.9 L (12.0-16.0) g/dL Hct 34.3 L 29.8 L (37-47) % MCV 85.8 85.6 (80-100) fL MCH 29.0 28.4 (25-34) pg MCHC 33.8 33.2 (32-36) g/dL RDW Std Deviation 40.9 41.7 (36.4-46.3) fL RDW Coeff of Christen 13.1 13.4 (11.5-14.5) % Plt Count 203 173 (130-400) K/uL MPV 10.3 10.7 H (7.4-10.4) fL Immature Gran % (Auto) 0.5 0.3 % Neut % (Auto) 71.6 78.8 % Lymph % (Auto) 22.8 13.9 % Haskell % (Auto) 4.6 6.7 % Eos % (Auto) 0.5 0.2 % Baso % (Auto) 0.0 0.1 % Immature Gran # (Auto) 0.05 H 0.03 H (0.00-0.02) K/uL Neut # (Auto) 7.86 H 8.75 H (1.4-6.5) K/uL Lymph # (Auto) 2.50 1.54 (1.2-3.4) K/uL Haskell # (Auto) 0.50 0.74 H (0.11-0.59) K/uL Eos # (Auto) 0.05 0.02 (0-0.5) K/uL Baso # (Auto) 0.00 0.01 (0-0.2) K/uL Blood Type A Positive Antibody Screen NEGATIVE 06/09/18 Range/Units 06:09 WBC (4.8-10.8) K/uL RBC (4.2-5.4) M/uL Hgb 9.9 L (12.0-16.0) g/dL Hct 30.6 L (37-47) % MCV (80-100) fL MCH (25-34) pg MCHC (32-36) g/dL RDW Std Deviation (36.4-46.3) fL RDW Coeff of Christen (11.5-14.5) % Plt Count (130-400) K/uL MPV (7.4-10.4) fL Immature Gran % (Auto) % Neut % (Auto) % Lymph % (Auto) % Haskell % (Auto) % Eos % (Auto) % Baso % (Auto) % Immature Gran # (Auto) (0.00-0.02) K/uL Neut # (Auto) (1.4-6.5) K/uL Lymph # (Auto) (1.2-3.4) K/uL Haskell # (Auto) (0.11-0.59) K/uL Eos # (Auto) (0-0.5) K/uL Baso # (Auto) (0-0.2) K/uL Blood Type Antibody Screen PE: General: Alert, orientedx3, NAD CVS: S1S2 RRR Lungs; CTAB Abd: soft, NT, ND, BS+, fundus firm, below Umbilicus Incision: Clean, dry, intact Perineum intact, Lochia rubra minimal Ext; NT, no edema AP: 32 yo s/p RC Section, pod# 2 VSS Afebrile doing well Continue routine postop care Encourage ambulation, PO intake All questions were answered Discussed when to call D/C home if baby will be discharged Physical Exam Vital Signs (Past 24 Hours): Last Vital Signs Temp 36.8 C 06/08/18 23:00 Pulse 99 H 06/08/18 23:00 Resp 18 06/08/18 23:00 BP 99/58 L 06/08/18 23:00 Pulse Ox 96 06/08/18 23:00
[2018-06-09] MEDS ORDERED: BISACODYL 10 MG SUPP PR PRN (08:50)
--- NOTE | 2018-06-16 11:17 | Discharge Summary ---
REASON FOR ADMISSION AND HISTORY OF PRESENT ILLNESS: The patient is a 32-year-old female, para 2-0-0-2, at 39 weeks, admitted for elective repeat section. The patient underwent repeat section under spinal anesthesia without difficulty. She delivered a live infant that was doing well, found to be in the occiput transverse position at time of delivery. The baby had an of 8 and 8. weight was 8 pounds 4 ounces. Hospital course was unremarkable. Regular diet on discharge. DISCHARGE DIAGNOSIS: Term elective repeat section, delivered. MEDICATIONS ON DISCHARGE: Motrin and Percocet for pain. Followup will be in the office in 1 week for an incision check.
== END 2018-06-09 13:22 | disposition home or self-care (01) | DRG 788 ==
LOC: 4S1 03:00 → EDSTATUS 07:30 → 4S2 11:20

== ENCOUNTER 2020-10-21 05:28 | Inpatient (IN) ==
--- NOTE | 2020-09-26 10:49 | Anesthesiology Consultation ---
Date of Service September 26, 2020 Assessment & Plan (1) Encounter for pre-operative examination: Chart Review Chart Review: entry level account manager initiated Per nursing assessment 09/25/20, patient denies any recent travel. No known Covid infection in the past 90 days. Patient is not vaccinated for Covid. No known Covid positive contacts or Covid related symptoms. Pt aware of need for preop Covid testing= will await results Repeat 06/07/2018 = done under SAB at L3-4. 2 attempts. No other anesthesia issues noted per anesthesia record. History Surgery Operation Date: 10/21/20 07:30 Proposed Procedures p Repeat Section with Bilateral Tubal Ligation - Sarath Ortega MD Height/Weight Height: 5 ft 5 in Weight: 92.986 kg Allergies Allergy/AdvReac Type Severity Reaction Status Date / Time gluten Allergy Severe "INTESTINAL Verified 09/25/20 14:01 ISSUES"; HX CELIAC DISEASE matthew Allergy Severe ANAPHYLAXIS Verified 09/25/20 14:01 pineapple Allergy Severe ANAPHYLAXIS Verified 09/25/20 14:01 nickel Allergy Rash Verified 09/25/20 14:13 clarithromycin AdvReac Intermediate EMESIS Verified 09/25/20 14:01 Medications Home Medications Medication Instructions Recorded Confirmed Last Taken lactobacillus combination no.4 3 3,000 mmu cells PO QAM 05/17/18 09/25/20 Unknown billion cell capsule (Probiotic) Past Medical History Medical History History of celiac disease Past Surgical History Surgical History History of section x 3 2013= 2/2 PROLONGED LABOR 02/2016= SAB @ L3-L4 X 1 ATTEMPT AT [facility] (GOOD PAIN CONTROL) History of cholecystectomy History of esophagogastroduodenoscopy (EGD) History of tonsillectomy Social History Smoking Status: Never smoker Do You Dip or Chew Tobacco: No Hx Alcohol Use: No Hx Substance Use: No substance use type: does not use
[2020-10-21] MEDS ORDERED: LACTATED RINGER'S 1,000 ML IV SCH ×2 (05:45→06:45)
[2020-10-21] MEDS ORDERED: CITRIC ACID/SODIUM CITRATE 15 ML UDC PO SCH (06:00)
[2020-10-21] MEDS ORDERED: ceFAZolin 2000MG 2,000 MG/15 ML SYR IV SCH (06:00)
[2020-10-21 06:30] LABS: Basophils # (auto) 0.02 K/uL (0-0.2); Basophils % (auto) 0.2 %; Eosinophils # (auto) 0.03 K/uL (0-0.5); Eosinophils % (auto) 0.4 %; Hematocrit (blood only) 33.7 % (37-47); Hemoglobin 11.1 g/dL (12.0-16.0); Immature Granulocytes # (auto) 0.05 K/uL (0.00-0.02); Immature Granulocytes % (auto) 0.6 %; Lymphocytes # (auto) 1.87 K/uL (1.2-3.4); Lymphocytes % (auto) 22.3 %; Mean Corpuscular Hemoglobin 28.7 pg (25-34); Mean Corpuscular Hgb Conc 32.9 g/dL (32-36); Mean Corpuscular Volume 87.1 fL (80-100); Mean Platelet Volume 10.8 fL (7.4-10.4); Monocytes # (auto) 0.57 K/uL (0.11-0.59); Monocytes % (auto) 6.8 %; Neutrophils # (auto) 5.85 K/uL (1.4-6.5); Neutrophils % (auto) 69.7 %; Platelet Count 204 K/uL (130-400); RDW Coefficient of Variation 12.8 % (11.5-14.5); RDW Standard Deviation 40.7 fL (36.4-46.3); Red Blood Count 3.87 M/uL (4.2-5.4); White Blood Count 8.39 K/uL (4.8-10.8)
[2020-10-21] MEDS ORDERED: ATROPINE SULFATE 0.1 MG/ML 10ML SYR IV PRN (07:12)
[2020-10-21] MEDS ORDERED: ePHEDrine sulfate 50 MG/ML AMP IV PRN (07:12)
[2020-10-21] MEDS ORDERED: OXYTOCIN 10 UNITS/ML VIAL ONE ×3 (07:23→08:34)
[2020-10-21] MEDS ORDERED: fentaNYL citrate 100 MCG/2 ML VIAL ONE (07:24)
[2020-10-21] MEDS ORDERED: PHENYLEPHRINE 100MCG/ML 5ML SYR ONE (07:24)
[2020-10-21] MEDS ORDERED: MoRPHine SULFATE PF 1 MG/ML 10 ML AMP/VIAL ONE (07:24)
--- NOTE | 2020-10-21 07:24 | History & Physical Bridge Note ---
Date of Service October 21, 2020 History & Physical Bridge Note I have examined the patient, reviewed the History & Physical and in the interval since the performance of the History & Physical I have noted the following changes of clinical significance: no changes noted
[2020-10-21] MEDS ORDERED: METHYLERGONOVINE MALEATE 0.2 MG/ML AMP ONE (08:20)
[2020-10-21] MEDS ORDERED: miSOPROStoL 200 MCG TAB ONE (09:06)
[2020-10-21] MEDS ORDERED: MoRPHine SULFATE PF 1 MG/ML 10 ML AMP/VIAL INT SPINAL ONE (09:23)
[2020-10-21] MEDS ORDERED: ONDANSETRON INJ 2 MG/ML 2 ML VIAL IV PRN (09:23)
[2020-10-21] MEDS ORDERED: LACTATED RINGER'S 500 ML IV PRN (09:23)
[2020-10-21] MEDS ORDERED: NALOXONE HCL 0.4 MG/1 ML VIAL/CARP IV PRN (09:23)
[2020-10-21] MEDS ORDERED: NALOXONE HCL 1 MG in SODIUM CHLORIDE 0.9% 1000ML 1,000 ML IV PRN (09:23)
[2020-10-21] MEDS ORDERED: NALOXONE HCL 0.08 MG in SYRINGE 1.8 ML IV PRN (09:23)
[2020-10-21] MEDS ORDERED: diphenhydrAMINE 50 MG/ML VIAL IV PRN (09:23)
[2020-10-21] MEDS ORDERED: NALBUPHINE HCL INJ 10 MG/ML AMP IV PRN (09:23)
[2020-10-21] MEDS ORDERED: PROMETHAZINE HCL 25 MG in SODIUM CHLORIDE 0.9% 50 ML IV PRN (09:23)
[2020-10-21] MEDS ORDERED: MAGNESIUM HYDROXIDE SUSP 30 ML UDC PO PRN (09:25)
[2020-10-21] MEDS ORDERED: DIPHTHERIA/TETANUS/PERTUSSIS 0.5 ML SYR/VIAL IM ONE (09:25)
[2020-10-21] MEDS ORDERED: SUPERCREAM 0.870% 15 GM JAR EXT PRN (09:25)
[2020-10-21] MEDS ORDERED: SENNA 8.6 MG TAB PO PRN (09:25)
[2020-10-21] MEDS ORDERED: HYDROCORTISONE ACETATE 25 MG SUPP PR PRN (09:25)
[2020-10-21] MEDS ORDERED: BENZOCAINE 20% AER SPR 82.5 GM CAN EXT PRN (09:25)
--- NOTE | 2020-10-21 09:28 | Post Operative Brief Note ---
Immediate Post Op Note v1 Date of Surgery October 21, 2020 Pre & Post Diagnosis Operation Date: 10/21/20 07:30 Pre-Op Diagnosis: Previous Section Post-Op Diagnosis: Previous Section I identified the patient and participated in the time-out.: Yes Procedure Operation Date: 10/21/20 07:30 Actual Procedures p Repeat Section with Bilateral Tubal Ligation of live female child at 088 - Sarath Ortega MD Surgeon Sarath Ortega MD Circuit Design Engineer mona CHAPPELL Estimated Blood Loss 600 Findings Consistent with Post-Op Diagnosis Drains Choe Catheter
[2020-10-21] MEDS ORDERED: DC INTRASPINAL MORPHINE SCH (09:30)
[2020-10-21] MEDS ORDERED: SODIUM CHLORIDE 0.9% 1000ML 1,000 ML IV SCH (09:30)
[2020-10-21] MEDS ORDERED: NO NARCOTICS OR SEDATIVES SCH (09:30)
[2020-10-21] MEDS ORDERED: METHYLERGONOVINE MALEATE 0.2 MG/ML AMP IM STA (09:45)
[2020-10-21] MEDS ORDERED: miSOPROStoL 200 MCG TAB PR ONE (09:45)
[2020-10-21] MEDS ORDERED: OXYTOCIN 10 UNITS/ML VIAL IM ONE (09:45)
[2020-10-21 09:56] LABS: Base Excess Cord Venous Blood -1.5 mEq/L (-7.7-1.9); CO2 Cord Arterial Blood 63 mmHg (39.1-73.5); Cord Venous Blood HCO3 25 mmol/L (18.4-26.8); Cord Venous Blood PCO2 50 mmHg (30.4-57.2); Cord Venous Blood PO2 20 mmHg (14.1-43.3); Cord Venous Blood pH 7.32 (7.20-7.44); HCO3 Cord Arterial Blood 27 mmol/L (19.7-28.5); PO2 Cord Arterial Blood 12 mmHg (4.1-31.7); pH Cord Arterial Blood 7.25 (7.1-7.38)
[2020-10-21 09:57] LABS: O2 Saturation Cord Venous Bld < 60.0 % (<68); Oxygen Sat Cord Arterial Blood < 60.0 % (<60)
--- NOTE | 2020-10-21 10:20 | Operative Report (OR) ---
DATE OF PROCEDURE: 10/21/2020. INDICATION FOR SURGERY: This is a 35-year-old G5, P3, wishes to have repeat and permanent sterilization. PREOPERATIVE DIAGNOSES: 1. at term. 2. Previous section x3. 3. Undesired fertility. POSTOPERATIVE DIAGNOSES: 1. at term. 2. Previous section x3. 3. Undesired fertility. SURGEON: Sarath Ortega MD BAG BUNDLER: MISTI Bailey. PROCEDURE: 1. Repeat section. 2. Bilateral tubal ligation. 3. Extensive lysis of adhesions. DECISION FOR BAG BUNDLER: Periodicals Library Assistant was necessary to help with retraction and provide better visualiza tion. This was the patient's fourth section and had several adhesions. ESTIMATED BLOOD LOSS: 500 mL. URINE OUTPUT: 300 mL. INTRAVENOUS FLUIDS: 1400 mL. FINDINGS: Normal female escutcheon. Intraabdominal findings, uterus had several adhesions in the pe lvis. This was because of prior section. As soon as lysis of adhesions was performed, left and right fallopian tubes were transected. Rest of the abdominal exam otherwise unremarkable. COMPLICATIONS: None. DRAINS: Choe catheter. SPECIMENS: 1. Placenta. 2. Cord blood. 3. Cord gases. 4. Left and right segments of fallopian tube. DESCRIPTION OF PROCEDURE: The patient was taken to the operating room where she was prepped and drap ed in normal sterile fashion. Spinal anesthesia was placed by the anesthesiologist. Transverse Pfan nenstiel incision was made with a scalpel and carried down to the fascia. Fascia was incised in the midline and extended laterally on both sides. At this point, peritoneum was identified as well as th e rectus abdominis muscle. There were several adhesions, which were carefully dissected. Once insid e the abdomen, an Kaden retractor was placed for retraction. More adhesions were encountered betwee n the peritoneum and anterior surface of the uterus, which was once again carefully and sharply disse cted. There was good hemostasis. The vesicouterine peritoneum was carefully dissected off the lower segment of the uterus. A low transverse incision was made on the uterus and extended laterally on b oth sides. Amniotomy was performed and infant's head was delivered. Mouth was suctioned. Delayed c ord clamping was performed. Infant's weight is pending, Apgars 9 and 9. Segment of the cord blood w as obtained for cord gas. Cord blood was obtained. Placenta was manually removed. Uterus was exter iorized and cleared of all clots and debris. Uterus was closed in two layers with Vicryl stitch. Th ere was good hemostasis post repair. Copious amount of irrigation was used to irrigate the abdomen. Attention was paid to the tubal ligation portion of the procedure where the right fallopian tube was identified and followed to the fimbriated end. This was agreed upon by surgeon and respiratory therapy assistant. A mod ified [place] tubal ligation procedure was performed. Segment of the right fallopian tube was trans ected and sent to pathology for pathological analysis. Taylor clamps were used for hemostasis and sut ure used to tie. Same procedure was performed on the contralateral side. There was good hemostasis. The uterus was returned to the abdominal cavity. More irrigation was used to irrigate the abdomen. Peritoneum was identified and closed with running plain suture. Fascia was identified and closed wi th a running suture of Vicryl. Subcutaneous space was closed with plain suture again. All instruments were removed from the abdomen at this point and accounted for x2. Skin was then clos ed with hetal. Instrument count was performed again. The patient returned to recovery in stable c ondition. Job ID: [id number]
--- NOTE | 2020-10-21 10:51 | Anesthesiology Progress Note ---
Date of Service October 21, 2020 Anesthesia Post Procedure Vital Signs Vital Signs: Temp Pulse Pulse Resp BP Pulse Ox 10/21/20 10:44 86 95 10/21/20 10:39 78 96 10/21/20 10:34 82 98 10/21/20 10:29 89 94 10/21/20 10:24 75 106/70 98 10/21/20 10:20 82 18 98 10/21/20 10:19 72 96 10/21/20 10:17 77 18 108/72 97 10/21/20 10:15 89 18 94 10/21/20 10:14 77 108/72 97 10/21/20 10:10 85 92 10/21/20 10:09 85 94 10/21/20 10:07 79 110/72 97 10/21/20 10:04 79 110/72 97 10/21/20 09:59 77 97 10/21/20 09:58 36.6 C 72 18 98 10/21/20 09:55 75 18 112/70 97 10/21/20 09:54 75 112/70 97 10/21/20 09:49 76 99 10/21/20 09:46 72 107/68 10/21/20 09:45 76 18 107/68 99 10/21/20 09:44 77 100 10/21/20 09:39 79 99 10/21/20 09:35 76 18 105/51 L 99 10/21/20 09:34 76 100 10/21/20 09:29 76 100 10/21/20 09:25 36.6 C 77 18 114/70 100 10/21/20 09:24 75 114/70 100 10/21/20 07:49 36.8 C 104 H 18 134/79 10/21/20 07:27 104 H 134/79 10/21/20 05:35 96 H 140/70 10/21/20 05:34 36.8 C 20 Pain Intensity Lower Abdomen: Pain Intensity: 2 Transfer of Care Handoff Completed per policy Notes Mental Status: alert / awake / arousable Patient Amnestic to Procedure: Yes Nausea / Vomiting: adequately controlled Pain: adequately controlled Airway Patency, RR, SpO2: stable & adequate BP & HR: stable & adequate Hydration State: stable & adequate Neuraxial Anesthesia: was administered and sensory block is resolving Anesthetic Complications: no major complications apparent
[2020-10-21] MEDS: SIMETHICONE 80 MG CHEW PO SCH ×3 (12:11→20:41)
[2020-10-21] MEDS: KETOROLAC 30 MG/ML VIAL IV PRN ×2 (12:12→19:41)
[2020-10-21] MEDS: OXYTOCIN 20 UNITS in LACTATED RINGER'S 1,000 ML IV SCH (15:27)
[2020-10-21] MEDS: DOCUSATE SODIUM 100 MG CAP PO SCH (20:41)
[2020-10-22] MEDS: OXYTOCIN 20 UNITS in LACTATED RINGER'S 1,000 ML IV SCH
[2020-10-22] MEDS: KETOROLAC 30 MG/ML VIAL IV PRN (03:08)
[2020-10-22] MEDS ORDERED: ONDANSETRON INJ 2 MG/ML 2 ML VIAL IV PRN (03:25)
[2020-10-22] MEDS ORDERED: ZOLPIDEM TARTRATE 5 MG TAB PO PRN (03:25)
[2020-10-22] MEDS ORDERED: diphenhydrAMINE Capsule 25 MG CAP PO PRN (03:25)
[2020-10-22] MEDS ORDERED: PROMETHAZINE HCL 25 MG in SODIUM CHLORIDE 0.9% 50 ML IV PRN (03:25)
[2020-10-22] MEDS ORDERED: diphenhydrAMINE 50 MG/ML VIAL IV PRN (03:25)
[2020-10-22] MEDS: oxyCODONE/ACETAMINOPHEN 5mg/325mg TAB PO PRN ×5 (06:19→22:28)
[2020-10-22 07:26] LABS: Basophils # (auto) 0.01 K/uL (0-0.2); Basophils % (auto) 0.1 %; Eosinophils # (auto) 0.05 K/uL (0-0.5); Eosinophils % (auto) 0.4 %; Hematocrit (blood only) 31.8 % (37-47); Hemoglobin 10.5 g/dL (12.0-16.0); Immature Granulocytes # (auto) 0.04 K/uL (0.00-0.02); Immature Granulocytes % (auto) 0.4 %; Lymphocytes # (auto) 1.26 K/uL (1.2-3.4); Lymphocytes % (auto) 11.2 %; Mean Corpuscular Hemoglobin 28.9 pg (25-34); Mean Corpuscular Volume 87.6 fL (80-100); Mean Platelet Volume 10.6 fL (7.4-10.4); Monocytes # (auto) 0.66 K/uL (0.11-0.59); Monocytes % (auto) 5.9 %; Platelet Count 196 K/uL (130-400); RDW Coefficient of Variation 12.8 % (11.5-14.5); RDW Standard Deviation 41.2 fL (36.4-46.3); Red Blood Count 3.63 M/uL (4.2-5.4); White Blood Count 11.22 K/uL (4.8-10.8)
[2020-10-22] MEDS: DOCUSATE SODIUM 100 MG CAP PO SCH ×2 (08:27→20:11)
[2020-10-22] MEDS: PRENATAL VITAMIN 1 TAB PO SCH (08:27)
[2020-10-22] MEDS: SIMETHICONE 80 MG CHEW PO SCH ×4 (08:27→20:11)
[2020-10-22] MEDS: FERROUS SULFATE 325 MG TAB PO SCH (08:27)
[2020-10-22] MEDS: IBUPROFEN 600 MG TAB PO PRN ×4 (10:29→22:29)
--- NOTE | 2020-10-22 13:13 | Obstetrical Progress Note ---
Date of Service October 22, 2020 Assessment & Plan Admission and Anticipated Discharge Date Admission Date: October 21, 2020 Subjective abdomen soft and non tender bowel sounds present passing flatus ambulating well vaginal bleeding scant hgb 10.5 Results & Data ([facility]) Vital Signs (Past 12 Hours) Vital Signs Temp Pulse Resp BP Pulse Ox 10/22/20 07:50 37.4 C 91 H 18 113/71 98 10/22/20 03:10 37.0 C 87 16 100/68 99 10/22/20 02:25 16 94
[2020-10-22] MEDS ORDERED: bisacodyL 5 MG TABEC PO SCH (20:00)
[2020-10-23] MEDS: IBUPROFEN 600 MG TAB PO PRN ×2 (03:35→08:12)
[2020-10-23] MEDS: oxyCODONE/ACETAMINOPHEN 5mg/325mg TAB PO PRN ×2 (03:36→08:12)
[2020-10-23 06:43] LABS: Hematocrit (blood only) 31.7 % (37-47); Hemoglobin 10.4 g/dL (12.0-16.0)
[2020-10-23] MEDS: SIMETHICONE 80 MG CHEW PO SCH (08:11)
[2020-10-23] MEDS: DOCUSATE SODIUM 100 MG CAP PO SCH (08:11)
[2020-10-23] MEDS: PRENATAL VITAMIN 1 TAB PO SCH (08:12)
[2020-10-23] MEDS: FERROUS SULFATE 325 MG TAB PO SCH (08:12)
--- NOTE | 2020-10-23 08:41 | Obstetrical Progress Note ---
Date of Service October 23, 2020 Assessment & Plan Admission and Anticipated Discharge Date Admission Date: October 21, 2020 Subjective Patient is seen and examined. She feels well, no complaints. Desires d/c today Pain is under control with oral meds. Ambulating without dizziness Voiding without difficulty Tolerating regular diet with out N&V Flatus + BM neg Bleeding is minimal No fever/ chills/ CP/ SOB/ N&V/ Leg pain Breast feeding without problems Vital Signs Temp Pulse Resp BP 10/22/20 23:10 36.7 C 80 18 98/65 L Vital Signs Temp Pulse Resp BP 10/22/20 23:10 36.7 C 80 18 98/65 L 10/22/20 16:10 36.9 C 82 18 102/66 Lab Results 10/21/20 10/21/20 10/21/20 Range/Units 06:02 06:02 07:18 WBC 8.39 (4.8-10.8) K/uL RBC 3.87 L (4.2-5.4) M/uL Hgb 11.1 L (12.0-16.0) g/dL Hct 33.7 L (37-47) % MCV 87.1 (80-100) fL MCH 28.7 (25-34) pg MCHC 32.9 (32-36) g/dL RDW Std Deviation 40.7 (36.4-46.3) fL RDW Coeff of Christen 12.8 (11.5-14.5) % Plt Count 204 (130-400) K/uL MPV 10.8 H (7.4-10.4) fL Immature Gran % (Auto) 0.6 % Neut % (Auto) 69.7 % Lymph % (Auto) 22.3 % Deuel % (Auto) 6.8 % Eos % (Auto) 0.4 % Baso % (Auto) 0.2 % Neut # (Auto) 5.85 (1.4-6.5) K/uL Lymph # (Auto) 1.87 (1.2-3.4) K/uL Deuel # (Auto) 0.57 (0.11-0.59) K/uL Eos # (Auto) 0.03 (0-0.5) K/uL Baso # (Auto) 0.02 (0-0.2) K/uL Immature Gran # (Auto) 0.05 H (0.00-0.02) K/uL Cord ABG pH (7.1-7.38) Cord ABG pCO2 (39.1-73.5) mmHg Cord ABG pO2 (4.1-31.7) mmHg Cord ABG HCO3 (19.7-28.5) mmol/L Cord ABG Base Excess (-9-1.8) mEq/L Cord ABG O2 Sat (<60) % Cord VBG pH (7.20-7.44) Cord VBG pCO2 (30.4-57.2) mmHg Cord VBG pO2 (14.1-43.3) mmHg Cord VBG HCO3 (18.4-26.8) mmol/L Cord VBG Base Excess (-7.7-1.9) mEq/L Cord VBG O2 Sat (<68) % Barometric Pressure mm/Hg Blood Gas Comments POC Glucose 82 (70-99) mg/dl Blood Type A Positive Antibody Screen NEGATIVE 10/21/20 10/21/20 10/22/20 Range/Units 08:18 08:18 06:42 WBC 11.22 H (4.8-10.8) K/uL RBC 3.63 L (4.2-5.4) M/uL Hgb 10.5 L (12.0-16.0) g/dL Hct 31.8 L (37-47) % MCV 87.6 (80-100) fL MCH 28.9 (25-34) pg MCHC 33.0 (32-36) g/dL RDW Std Deviation 41.2 (36.4-46.3) fL RDW Coeff of Christen 12.8 (11.5-14.5) % Plt Count 196 (130-400) K/uL MPV 10.6 H (7.4-10.4) fL Immature Gran % (Auto) 0.4 % Neut % (Auto) 82.0 % Lymph % (Auto) 11.2 % Deuel % (Auto) 5.9 % Eos % (Auto) 0.4 % Baso % (Auto) 0.1 % Neut # (Auto) 9.20 H (1.4-6.5) K/uL Lymph # (Auto) 1.26 (1.2-3.4) K/uL Deuel # (Auto) 0.66 H (0.11-0.59) K/uL Eos # (Auto) 0.05 (0-0.5) K/uL Baso # (Auto) 0.01 (0-0.2) K/uL Immature Gran # (Auto) 0.04 H (0.00-0.02) K/uL Cord ABG pH 7.25 (7.1-7.38) Cord ABG pCO2 63 (39.1-73.5) mmHg Cord ABG pO2 12 (4.1-31.7) mmHg Cord ABG HCO3 27 (19.7-28.5) mmol/L Cord ABG Base Excess -2.0 (-9-1.8) mEq/L Cord ABG O2 Sat < 60.0 (<60) % Cord VBG pH 7.32 (7.20-7.44) Cord VBG pCO2 50 (30.4-57.2) mmHg Cord VBG pO2 20 (14.1-43.3) mmHg Cord VBG HCO3 25 (18.4-26.8) mmol/L Cord VBG Base Excess -1.5 (-7.7-1.9) mEq/L Cord VBG O2 Sat < 60.0 (<68) % Barometric Pressure 733.2 733.2 mm/Hg Blood Gas Comments SOW SOW POC Glucose (70-99) mg/dl Blood Type Antibody Screen 10/23/20 Range/Units 06:20 WBC (4.8-10.8) K/uL RBC (4.2-5.4) M/uL Hgb 10.4 L (12.0-16.0) g/dL Hct 31.7 L (37-47) % MCV (80-100) fL MCH (25-34) pg MCHC (32-36) g/dL RDW Std Deviation (36.4-46.3) fL RDW Coeff of Christen (11.5-14.5) % Plt Count (130-400) K/uL MPV (7.4-10.4) fL Immature Gran % (Auto) % Neut % (Auto) % Lymph % (Auto) % Deuel % (Auto) % Eos % (Auto) % Baso % (Auto) % Neut # (Auto) (1.4-6.5) K/uL Lymph # (Auto) (1.2-3.4) K/uL Deuel # (Auto) (0.11-0.59) K/uL Eos # (Auto) (0-0.5) K/uL Baso # (Auto) (0-0.2) K/uL Immature Gran # (Auto) (0.00-0.02) K/uL Cord ABG pH (7.1-7.38) Cord ABG pCO2 (39.1-73.5) mmHg Cord ABG pO2 (4.1-31.7) mmHg Cord ABG HCO3 (19.7-28.5) mmol/L Cord ABG Base Excess (-9-1.8) mEq/L Cord ABG O2 Sat (<60) % Cord VBG pH (7.20-7.44) Cord VBG pCO2 (30.4-57.2) mmHg Cord VBG pO2 (14.1-43.3) mmHg Cord VBG HCO3 (18.4-26.8) mmol/L Cord VBG Base Excess (-7.7-1.9) mEq/L Cord VBG O2 Sat (<68) % Barometric Pressure mm/Hg Blood Gas Comments POC Glucose (70-99) mg/dl Blood Type Antibody Screen PE: General: Alert, orientedx3, NAD CVS: S1S2 RRR Lungs; CTAB Abd: soft, NT, ND, BS+, fundus firm, below Umbilicus Incision/ Caroline: Clean, dry, intact Perineum intact, Lochia rubra minimal Ext; NT, no edema AP: 35 yo s/p C Section, pod# 2 VSS Afebrile doing well Continue routine postop care Encourage ambulation, PO intake All questions were answered D/C home , f/u in office Discussed when to call Results & Data ([facility]) Vital Signs (Past 12 Hours) Vital Signs Temp Pulse Resp BP 10/22/20 23:10 36.7 C 80 18 98/65 L
[2020-10-23] MEDS ORDERED: bisacodyL 10 MG SUPP PR PRN (09:25)
--- NOTE | 2020-11-04 11:54 | Discharge Summary (DS) ---
DATE OF ADMISSION: 10/21/2020 DATE OF DISCHARGE: 10/23/2020 HISTORY OF PRESENT ILLNESS: This is a 35-year-old who presented to labor and delivery on 10/21 for repeat . This was her fourth section. The patient also wished to have p ermanent sterilization. Procedure went on as scheduled. Details of surgery and pediatric informatio n on their respective records. Otherwise, the procedure was unremarkable. The patient did well and met all milestones in recovery. She was discharged home on 10/23/2020 in stable condition. PAST MEDICAL HISTORY: The patient has a history of celiac disease. PAST SURGICAL HISTORY: The patient had C-sections x3, history of cholecystectomy, history of tonsill ectomy, history of esophageal duodenostomy, EGD. SOCIAL HISTORY: The patient is and lives with spouse and children. Denies tobacco, drug or alcohol use. FAMILY HISTORY: Noncontributory. ALLERGIES: THE PATIENT IS ALLERGIC TO CLARITHROMYCIN. PHYSICAL EXAMINATION: VITAL SIGNS: On 10/23/2020 showed blood pressure 116/76, pulse of 89, respirations 19, temperature 3 6.5. HEART: S1 and S2, regular rhythm and rate. LUNGS: Clear to auscultation bilaterally. ABDOMEN: Nontender, nondistended. Incision clean, dry and intact. EXTREMITIES: No cyanosis, clubbing or edema. LABORATORY DATA: On 10/23/2020 showed hemoglobin of 10.4, hematocrit of 31.7. CONDITION ON DISCHARGE: Stable. OPERATIONS: Repeat section x4 plus bilateral tubal ligation. PLAN ON DISCHARGE: The patient is discharged home with instructions regarding activity, diet, and [facility] appointment. Job ID: [id number]
== END 2020-10-23 10:55 | disposition home or self-care (01) | DRG 785 ==
LOC: 4S1 05:28 → EDSTATUS 07:30 → 4S2 11:45
DX: Z30.2 Encounter for sterilization; Z37.0 Single live birth; N85.8 Other specified noninflammatory disorders of uterus; Z91.048 Other nonmedicinal substance allergy status; Z91.018 Allergy to other foods; Z88.1 Allergy status to other antibiotic agents; O99.62 Diseases of the digestive system complicating childbirth; K90.0 Celiac disease; Z3A.39 39 weeks gestation of pregnancy; O34.219 Maternal care for unspecified type scar from previous cesarean delivery